=== PATIENT | male | born 1990 | race Caucasian/White ===

== ENCOUNTER 2018-08-10 23:29 | Emergency (ER) | payer SELFPAY ==
--- NOTE | 2018-08-10 23:41 | EDM.PDOC ---
ED HPI GENERAL MEDICAL PROBLEM - General Chief Complaint: General Stated Complaint: MEDICAL CLEARANCE Time Seen by Provider: 08/10/18 23:40 - History of Present Illness INITIAL COMMENTS - FREE TEXT/NARRATIVE: HISTORY AND PHYSICAL: History of present illness: Patient is a 28-year-old male who presents with concern of medical clearance patient is here with law enforcement and has no complaints Review of systems: As per history of present illness and below otherwise all systems reviewed and negative. Past medical history: As per history of present illness and as reviewed below otherwise noncontributory. Surgical history: As per history of present illness and as reviewed below otherwise noncontributory. Social history: No reported history of drug or alcohol abuse. Family history: As per history of present illness and as reviewed below otherwise noncontributory. Physical exam: HEENT: Atraumatic, normocephalic, pupils reactive, negative for conjunctival pallor or scleral icterus, mucous membranes moist, throat clear, neck supple, nontender, trachea midline. Lungs: Clear to auscultation, breath sounds equal bilaterally, chest nontender. Heart: S1S2, regular, negative for clicks, rubs, or JVD. Abdomen: Soft, nondistended, nontender. Negative for masses or hepatosplenomegaly. Negative for costovertebral tenderness. Pelvis: Stable nontender. Genitourinary: Deferred. Rectal: Deferred. Extremities: Atraumatic, negative for cords or calf pain. Neurovascular unremarkable. Neuro: Awake, alert, oriented. Cranial nerves II through XII unremarkable. Cerebellum unremarkable. Motor and sensory unremarkable throughout. Exam nonfocal. Diagnostics: None Therapeutics: None Impression: #1 medical clearance for incarceration/police hold Definitive disposition and diagnosis as appropriate pending reevaluation and review of above. - Related Data Allergies Allergy/AdvReac Type Severity Reaction Status Date / Time No Known Allergies Allergy Verified 08/10/18 23:38 Home Meds: Home Meds . [No Known Home Meds] 08/10/18 [History] ED ROS GENERAL - Review of Systems Review Of Systems: ROS reveals no pertinent complaints other than HPI. ED EXAM, GENERAL - Physical Exam Exam: See Below (See dictation) Course - Vital Signs Last Recorded V/S: Last Vital Signs Temp 36.3 C 08/10/18 23:33 Pulse 84 08/10/18 23:33 Resp 19 08/10/18 23:33 BP 124/84 08/10/18 23:33 Pulse Ox 96 08/10/18 23:33 Departure - Departure Time of Disposition: 23:41 Disposition: Home, Self-Care 01 Condition: Good Clinical Impression: Medical clearance for incarceration - Discharge Information Referrals: PCP,None [Primary Care Provider] - Additional Instructions: The following information is given to patients seen in the emergency department who are being discharged to home. This information is to outline your options for follow-up care. We provide all patients seen in our emergency department with a follow-up referral. The need for follow-up, as well as the timing and circumstances, are variable depending upon the specifics of your emergency department visit. If you don't have a primary care physician on staff, we will provide you with a referral. We always advise you to contact your personal physician following an emergency department visit to inform them of the circumstance of the visit and for follow-up with them and/or the need for any referrals to a consulting specialist. The emergency department will also refer you to a specialist when appropriate. This referral assures that you have the opportunity for followup care with a specialist. All of these measure are taken in an effort to provide you with optimal care, which includes your followup. Under all circumstances we always encourage you to contact your private physician who remains a resource for coordinating your care. When calling for followup care, please make the office aware that this follow-up is from your recent emergency room visit. If for any reason you are refused follow-up, please contact the [facility] emergency department at and asked to speak to the emergency department charge nurse. Follow up primary medical doctor as needed as discussed return as needed as discussed
== END 2018-08-10 23:58 ==
LOC: MW.ED 23:29
DX: Z02.89 Encounter for other administrative examinations (principal)
CPT/HCPCS: 82962; 99282

== ENCOUNTER 2018-12-05 07:21 | Inpatient (IN) | payer OTHER ==
--- NOTE | 2018-12-05 07:38 | EDM.PDOC ---
ED HPI GENERAL MEDICAL PROBLEM - General Chief Complaint: Skin Complaint Stated Complaint: INFECTION IN LEFT KNEE Time Seen by Provider: 12/05/18 07:33 Source of Information: Reports: Patient History Limitations: Reports: No Limitations - History of Present Illness INITIAL COMMENTS - FREE TEXT/NARRATIVE: History of present illness: []Patient has had one week of redness over his left knee that his progressing and now has swelling and redness of his leg. He's had fevers and chills. He states he did not have any trauma or an insect bite that he is aware. Patient denies any chest pain or shortness of breath. Review of systems: As per history of present illness and below otherwise all systems reviewed and negative. Past medical history: As per history of present illness and as reviewed below otherwise noncontributory. Surgical history: As per history of present illness and as reviewed below otherwise noncontributory. Social history: No reported history of drug or alcohol abuse. Family history: As per history of present illness and as reviewed below otherwise noncontributory. Physical exam: General: Well developed, well nourished in NAD HEENT: Atraumatic, normocephalic, pupils reactive, negative for conjunctival pallor or scleral icterus, mucous membranes moist, throat clear, neck supple, nontender, trachea midline. Lungs: Clear to auscultation, breath sounds equal bilaterally, chest nontender. Heart: S1S2, regular, negative for clicks, rubs, or JVD. Abdomen: NABS, Soft, nondistended, nontender. Negative for masses or hepatosplenomegaly. Negative for costovertebral tenderness. Pelvis: Stable nontender. Genitourinary: Deferred. Rectal: Deferred. Extremities: Left lower extremity is erythematous and edematous from the knee down. He is able to flex and extend his knee spontaneously, negative for cords or calf pain. Neurovascular unremarkable. Neuro: Awake, alert, oriented. Cranial nerves II through XII unremarkable. Cerebellum unremarkable. Motor and sensory unremarkable throughout. Exam nonfocal. Skin:warm and dry Diagnostics: X-ray left knee, Doppler ultrasound left leg, CBC, blood cultures, chemistry, lactate, sedimentation rate, CRP Therapeutics: IV ceftriaxone ED Course: Stable and with Dr. Shin accepts patient for admission Impression: Cellulitis left lower extremity Prescriptions: none Plan: Admit for IV antibiotics Definitive disposition and diagnosis as appropriate pending reevaluation and review of above. Left Knee Pain Score (Numeric/FACES): 8 - Related Data Allergies Allergy/AdvReac Type Severity Reaction Status Date / Time No Known Allergies Allergy Verified 12/05/18 07:34 Home Meds: Home Meds . [No Known Home Meds] 08/10/18 [History] Past Medical History - Past Health History Medical/Surgical History: Denies Medical/Surgical History Social & Family History - Family History Family Medical History: Noncontributory - Caffeine Use Caffeine Use: Reports: Coffee, Energy Drinks, Soda ED ROS GENERAL - Review of Systems Review Of Systems: See Below ED EXAM, SKIN/RASH Exam: See Below Course - Vital Signs Last Recorded V/S: Last Vital Signs Temp 98.2 F 12/05/18 07:41 Pulse 93 12/05/18 07:41 Resp 16 12/05/18 07:41 BP 129/83 12/05/18 07:41 Pulse Ox 98 12/05/18 07:41 - Orders/Labs/Meds Orders: Active Orders 24 hr Category Date Time Status Patient Status [ADT] Stat ADT 12/05/18 10:27 Ordered CULTURE BLOOD [BC] Stat Lab 12/05/18 08:03 Received CULTURE BLOOD [BC] Stat Lab 12/05/18 08:10 Received Sodium Chloride 0.9% [Saline Flush] Med 12/05/18 07:41 Active 10 ml FLUSH ASDIRECTED PRN Sodium Chloride 0.9% [Saline Flush] Med 12/05/18 07:41 Active 2.5 ml FLUSH ASDIRECTED PRN Blood Culture x2 Reflex Set [OM.PC] Stat Oth 12/05/18 07:41 Ordered Saline Lock Insert [OM.PC] Stat Oth 12/05/18 07:41 Ordered Medication Orders Sodium Chloride (Saline Flush) 10 ml FLUSH ASDIRECTED PRN PRN Reason: Keep Vein Open Last Admin: 12/05/18 09:08 Dose: 10 ml Sodium Chloride (Saline Flush) 2.5 ml FLUSH ASDIRECTED PRN PRN Reason: Keep Vein Open Last Admin: 12/05/18 09:08 Dose: 2.5 ml Labs: Laboratory Tests 12/05/18 12/05/18 12/05/18 Range/Units 08:03 08:03 08:03 WBC 7.64 (4.0-11.0) K/uL RBC 4.19 L (4.50-5.90) M/uL Hgb 11.8 L (13.0-17.0) g/dL Hct 35.2 L (38.0-50.0) % MCV 84.0 (80.0-98.0) fL MCH 28.2 (27.0-32.0) pg MCHC 33.5 (31.0-37.0) g/dL RDW Std Deviation 41.3 (28.0-62.0) fl RDW Coeff of Amelie 14 (11.0-15.0) % Plt Count 267 (150-400) K/uL MPV 10.20 (7.40-12.00) fL Neut % (Auto) 70.6 (48.0-80.0) % Lymph % (Auto) 20.8 (16.0-40.0) % [place] % (Auto) 7.1 (0.0-15.0) % Eos % (Auto) 1.2 (0.0-7.0) % Baso % (Auto) 0.3 (0.0-1.5) % Neut # (Auto) 5.4 (1.4-5.7) K/uL Lymph # (Auto) 1.6 (0.6-2.4) K/uL [place] # (Auto) 0.5 (0.0-0.8) K/uL Eos # (Auto) 0.1 (0.0-0.7) K/uL Baso # (Auto) 0.0 (0.0-0.1) K/uL Nucleated RBC % 0.0 /100WBC Nucleated RBCs # 0 K/uL ESR (0-14) mm/hr Lactate 0.7 (0.20-2.00) mmol/L Sodium 141 (136-148) mmol/L Potassium 3.3 L (3.5-5.1) mmol/L Chloride 102 (98-107) mmol/L Carbon Dioxide 28.2 (21.0-32.0) mmol/L BUN 9 (7.0-18.0) mg/dL Creatinine 0.9 (0.8-1.3) mg/dL Est Cr Clr Drug Dosing 120.02 mL/min Estimated GFR (MDRD) > 60.0 ml/min Glucose 96 (74-106) mg/dL Calcium 8.9 (8.5-10.1) mg/dL Total Bilirubin 0.3 (0.2-1.0) mg/dL AST 14 L (15-37) IU/L ALT 21 (14-63) IU/L Alkaline Phosphatase 74 (46-116) U/L C-Reactive Protein (0.00-0.90) mg/dL Total Protein 6.7 (6.4-8.2) g/dL Albumin 2.8 L (3.4-5.0) g/dL Globulin 3.9 (2.6-4.0) g/dL Albumin/Globulin Ratio 0.7 L (0.9-1.6) 12/05/18 12/05/18 Range/Units 08:03 08:03 WBC (4.0-11.0) K/uL RBC (4.50-5.90) M/uL Hgb (13.0-17.0) g/dL Hct (38.0-50.0) % MCV (80.0-98.0) fL MCH (27.0-32.0) pg MCHC (31.0-37.0) g/dL RDW Std Deviation (28.0-62.0) fl RDW Coeff of Amelie (11.0-15.0) % Plt Count (150-400) K/uL MPV (7.40-12.00) fL Neut % (Auto) (48.0-80.0) % Lymph % (Auto) (16.0-40.0) % [place] % (Auto) (0.0-15.0) % Eos % (Auto) (0.0-7.0) % Baso % (Auto) (0.0-1.5) % Neut # (Auto) (1.4-5.7) K/uL Lymph # (Auto) (0.6-2.4) K/uL [place] # (Auto) (0.0-0.8) K/uL Eos # (Auto) (0.0-0.7) K/uL Baso # (Auto) (0.0-0.1) K/uL Nucleated RBC % /100WBC Nucleated RBCs # K/uL ESR 39 H (0-14) mm/hr Lactate (0.20-2.00) mmol/L Sodium (136-148) mmol/L Potassium (3.5-5.1) mmol/L Chloride (98-107) mmol/L Carbon Dioxide (21.0-32.0) mmol/L BUN (7.0-18.0) mg/dL Creatinine (0.8-1.3) mg/dL Est Cr Clr Drug Dosing mL/min Estimated GFR (MDRD) ml/min Glucose (74-106) mg/dL Calcium (8.5-10.1) mg/dL Total Bilirubin (0.2-1.0) mg/dL AST (15-37) IU/L ALT (14-63) IU/L Alkaline Phosphatase (46-116) U/L C-Reactive Protein 21.30 H (0.00-0.90) mg/dL Total Protein (6.4-8.2) g/dL Albumin (3.4-5.0) g/dL Globulin (2.6-4.0) g/dL Albumin/Globulin Ratio (0.9-1.6) Meds: Medications Generic Name Dose Route Start Last Admin Trade Name Freq PRN Reason Stop Dose Admin Sodium Chloride 10 ml 12/05/18 07:41 12/05/18 09:08 Saline Flush FLUSH 10 ml ASDIRECTED PRN Administration Keep Vein Open Sodium Chloride 2.5 ml 12/05/18 07:41 12/05/18 09:08 Saline Flush FLUSH 2.5 ml ASDIRECTED PRN Administration Keep Vein Open Discontinued Medications Generic Name Dose Route Start Last Admin Trade Name Freq PRN Reason Stop Dose Admin Ceftriaxone Sodium/Dextrose 1 50 mls @ 100 mls/hr 12/05/18 08:30 12/05/18 09: 07 gm/ Premix IV 12/05/18 08:59 100 mls/hr ONETIME ONE Administration Departure - Departure Time of Disposition: 10:30 Disposition: Refer to Observation Condition: Good Clinical Impression: Left leg cellulitis - Discharge Information *PRESCRIPTION DRUG MONITORING PROGRAM REVIEWED*: No *COPY OF PRESCRIPTION DRUG MONITORING REPORT IN PATIENT MJ: No Referrals: PCP,None [Primary Care Provider] - Forms: ED Department Discharge - My Orders Last 24 Hours: My Active Orders 12/05/18 07:41 Sodium Chloride 0.9% [Saline Flush] 10 ml FLUSH ASDIRECTED PRN Sodium Chloride 0.9% [Saline Flush] 2.5 ml FLUSH ASDIRECTED PRN Blood Culture x2 Reflex Set [OM.PC] Stat Saline Lock Insert [OM.PC] Stat 12/05/18 08:03 CULTURE BLOOD [BC] Stat 12/05/18 08:10 CULTURE BLOOD [BC] Stat 12/05/18 10:27 Patient Status [ADT] Stat - Assessment/Plan Last 24 Hours: My Active Orders 12/05/18 07:41 Sodium Chloride 0.9% [Saline Flush] 10 ml FLUSH ASDIRECTED PRN Sodium Chloride 0.9% [Saline Flush] 2.5 ml FLUSH ASDIRECTED PRN Blood Culture x2 Reflex Set [OM.PC] Stat Saline Lock Insert [OM.PC] Stat 12/05/18 08:03 CULTURE BLOOD [BC] Stat 12/05/18 08:10 CULTURE BLOOD [BC] Stat 12/05/18 10:27 Patient Status [ADT] Stat
[2018-12-05] MEDS ORDERED: Sodium Chloride 0.9% 2.5 ML Syringe FLUSH PRN (07:41)
[2018-12-05] MEDS ORDERED: Sodium Chloride 0.9% 10 ML Syringe FLUSH PRN (07:41)
[2018-12-05] MEDS ORDERED: cefTRIAXone 1 GM in Premix Bag 1 BAG IV ONE (08:30)
[2018-12-05 08:38] LABS: BLOOD UREA NITROGEN,BUN 9 mg/dL (7.0-18.0); CARBON DIOXIDE,CO2 28.2 mmol/L (21.0-32.0); CHLORIDE,CL 102 mmol/L (98-107); GLUCOSE RANDOM 96 mg/dL (74-106); POTASSIUM,K 3.3 mmol/L (3.5-5.1); SODIUM,NA 141 mmol/L (136-148)
--- NOTE | 2018-12-05 09:05 | US ---
HISTORY: Left leg pain and redness. TECHNIQUE: Deep venous system of left lower extremity was examined using grayscale, color and Doppler techniques. Compression was assessed where able to be assessed. COMPARISON: No prior. FINDINGS: The left common femoral, femoral, popliteal and posterior tibial veins are patent without thrombus. There are areas of soft tissue swelling along with soft tissue edema involving the left leg. No well-defined collection. IMPRESSION: 1. Areas of soft tissue edema and swelling. 2. No well-defined collection. 3. No DVT within the left lower extremity. Dictated by Jaun Rooney MD @ 12/05/2018 9:04:06 AM Dictated by: Jaun Rooney MD @ 12/05/2018 09:04:09 (Electronically Signed)
--- NOTE | 2018-12-05 09:16 | CR ---
HISTORY: Left knee pain, infection. TECHNIQUE: Three views of the left knee. COMPARISON: Ultrasound 12/05/2018. FINDINGS: There is soft tissue swelling about the knee. There is no soft tissue gas. No acute fracture. No bony destructive change. No joint space narrowing. No definite suprapatellar joint effusion. IMPRESSION: 1. Soft tissue swelling. 2. No bony destructive change, soft tissue gas or definite suprapatellar joint effusion. Dictated by Jaun Rooney MD @ 12/05/2018 9:15:43 AM Dictated by: Jaun Rooney MD @ 12/05/2018 09:15:48 (Electronically Signed)
[2018-12-05] MEDS ORDERED: Acetaminophen 325 MG Tab PO PRN (10:49)
[2018-12-05] MEDS ORDERED: Temazepam 15 MG Cap PO PRN (10:50)
[2018-12-05] MEDS ORDERED: Ondansetron 4 MG Tab.DIS PO PRN (10:50)
--- NOTE | 2018-12-05 10:57 | PCM.HP.2 ---
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 Patient also endorses some mild fever and chills for which he used [id number] ibuprofen 200 mg x 4 every 4 hours; last dose was last night; states he stopped taking ibuprofen because of his stomach pain and discomfort. Patient also endorses a history of MRSA after a dog bite from 5 years ago. Patient denies any other significant medical history,, daily medications, or significant hospitalizations. Left Knee Pain Score (Numeric/FACES): 8 - Related Data Allergies/Adverse Reactions: Allergies Allergy/AdvReac Type Severity Reaction Status Date / Time No Known Allergies Allergy Verified 12/05/18 07:34 Home Medications: Home Meds . [No Known Home Meds] 08/10/18 [History] Past Medical History - Past Health History Medical/Surgical History: Denies Medical/Surgical History HEENT History: Reports: None Cardiovascular History: Reports: None Respiratory History: Reports: None Gastrointestinal History: Reports: None Genitourinary History: Reports: None Musculoskeletal History: Reports: None Neurological History: Reports: None Psychiatric History: Reports: None Endocrine/Metabolic History: Reports: None Hematologic History: Reports: None Immunologic History: Reports: None Oncologic (Cancer) History: Reports: None Dermatologic History: Reports: None - Infectious Disease History Infectious Disease History: Reports: Other (See Below) Other Infectious Disease History: Unknown if he has had chickenpox. - Past Surgical History Head Surgeries/Procedures: Reports: None Male Surgical History: Reports: None Social & Family History - Family History Family Medical History: Noncontributory - Tobacco Use Second Hand Smoke Exposure: No - Caffeine Use Caffeine Use: Reports: Coffee, Energy Drinks, Soda - Recreational Drug Use Recreational Drug Use: No H&P Review of Systems - Review of Systems: Review Of Systems: See Below General: Reports: Fever, Chills. Denies: Fatigue HEENT: Reports: No Symptoms Pulmonary: Reports: No Symptoms Cardiovascular: Reports: No Symptoms Gastrointestinal: Reports: Other (mild discomfort). Denies: Black Stool, Bloody Stool, Constipation, Diarrhea Genitourinary: Reports: No Symptoms Musculoskeletal: Reports: Other (left knee pain ) Skin: Reports: Erythema Exam - Exam Exam: See Below - Vital Signs Vital Signs: Last Vital Signs Temp 98.2 F 12/05/18 07:41 Pulse 93 12/05/18 07:41 Resp 16 12/05/18 07:41 BP 129/83 12/05/18 07:41 Pulse Ox 98 12/05/18 07:41 Weight: 77.111 kg - Exam General: Alert, Oriented HEENT: EOMI, Hearing Intact, Mucosa Moist & E. Lopez Neck: Trachea Midline Lungs: Clear to Auscultation, Normal Respiratory Effort Cardiovascular: Regular Rate, Regular Rhythm GI/Abdominal Exam: Soft, Non-Tender Back Exam: Normal Inspection, Full Range of Motion Skin: Other (left knee: erythema, increased warmth starting at distal portion of left upper leg extending doen to left ankle predominantly at the anterior aspect; left knee itself swollen, tender, increased warmth, 1.5 cm circualr pustular open wound , 1.5 cm deep; tender, FROM of knee ; no popliteal swelling . ) Neuro Extensive - Mental Status: Alert, Oriented x3 Neuro Extensive - Motor, Sensory, Reflexes: CN II-XII Intact Psychiatric: Alert, Normal Affect, Normal Mood - Patient Data Lab Results Last 24 hrs: Laboratory Results - last 24 hr 12/05/18 12/05/18 12/05/18 Range/Units 08:03 08:03 08:03 WBC 7.64 (4.0-11.0) K/uL RBC 4.19 L (4.50-5.90) M/uL Hgb 11.8 L (13.0-17.0) g/dL Hct 35.2 L (38.0-50.0) % MCV 84.0 (80.0-98.0) fL MCH 28.2 (27.0-32.0) pg MCHC 33.5 (31.0-37.0) g/dL RDW Std Deviation 41.3 (28.0-62.0) fl RDW Coeff of Amelie 14 (11.0-15.0) % Plt Count 267 (150-400) K/uL MPV 10.20 (7.40-12.00) fL Neut % (Auto) 70.6 (48.0-80.0) % Lymph % (Auto) 20.8 (16.0-40.0) % Fountain % (Auto) 7.1 (0.0-15.0) % Eos % (Auto) 1.2 (0.0-7.0) % Baso % (Auto) 0.3 (0.0-1.5) % Neut # (Auto) 5.4 (1.4-5.7) K/uL Lymph # (Auto) 1.6 (0.6-2.4) K/uL Fountain # (Auto) 0.5 (0.0-0.8) K/uL Eos # (Auto) 0.1 (0.0-0.7) K/uL Baso # (Auto) 0.0 (0.0-0.1) K/uL Nucleated RBC % 0.0 /100WBC Nucleated RBCs # 0 K/uL ESR (0-14) mm/hr Lactate 0.7 (0.20-2.00) mmol/L Sodium 141 (136-148) mmol/L Potassium 3.3 L (3.5-5.1) mmol/L Chloride 102 (98-107) mmol/L Carbon Dioxide 28.2 (21.0-32.0) mmol/L BUN 9 (7.0-18.0) mg/dL Creatinine 0.9 (0.8-1.3) mg/dL Est Cr Clr Drug Dosing 120.02 mL/min Estimated GFR (MDRD) > 60.0 ml/min Glucose 96 (74-106) mg/dL Calcium 8.9 (8.5-10.1) mg/dL Total Bilirubin 0.3 (0.2-1.0) mg/dL AST 14 L (15-37) IU/L ALT 21 (14-63) IU/L Alkaline Phosphatase 74 (46-116) U/L C-Reactive Protein (0.00-0.90) mg/dL Total Protein 6.7 (6.4-8.2) g/dL Albumin 2.8 L (3.4-5.0) g/dL Globulin 3.9 (2.6-4.0) g/dL Albumin/Globulin Ratio 0.7 L (0.9-1.6) 12/05/18 12/05/18 Range/Units 08:03 08:03 WBC (4.0-11.0) K/uL RBC (4.50-5.90) M/uL Hgb (13.0-17.0) g/dL Hct (38.0-50.0) % MCV (80.0-98.0) fL MCH (27.0-32.0) pg MCHC (31.0-37.0) g/dL RDW Std Deviation (28.0-62.0) fl RDW Coeff of Amelie (11.0-15.0) % Plt Count (150-400) K/uL MPV (7.40-12.00) fL Neut % (Auto) (48.0-80.0) % Lymph % (Auto) (16.0-40.0) % Fountain % (Auto) (0.0-15.0) % Eos % (Auto) (0.0-7.0) % Baso % (Auto) (0.0-1.5) % Neut # (Auto) (1.4-5.7) K/uL Lymph # (Auto) (0.6-2.4) K/uL Fountain # (Auto) (0.0-0.8) K/uL Eos # (Auto) (0.0-0.7) K/uL Baso # (Auto) (0.0-0.1) K/uL Nucleated RBC % /100WBC Nucleated RBCs # K/uL ESR 39 H (0-14) mm/hr Lactate (0.20-2.00) mmol/L Sodium (136-148) mmol/L Potassium (3.5-5.1) mmol/L Chloride (98-107) mmol/L Carbon Dioxide (21.0-32.0) mmol/L BUN (7.0-18.0) mg/dL Creatinine (0.8-1.3) mg/dL Est Cr Clr Drug Dosing mL/min Estimated GFR (MDRD) ml/min Glucose (74-106) mg/dL Calcium (8.5-10.1) mg/dL Total Bilirubin (0.2-1.0) mg/dL AST (15-37) IU/L ALT (14-63) IU/L Alkaline Phosphatase (46-116) U/L C-Reactive Protein 21.30 H (0.00-0.90) mg/dL Total Protein (6.4-8.2) g/dL Albumin (3.4-5.0) g/dL Globulin (2.6-4.0) g/dL Albumin/Globulin Ratio (0.9-1.6) Result Diagrams: 12/05/18 08:03 12/05/18 08:03 Problem List Initiated/Reviewed/Updated: Yes Orders Last 24hrs: Active Orders 24 hr Category Date Time Status Patient Status [ADT] Stat ADT 12/05/18 10:27 Active Activity as Tolerated [RC] .Routine Care 12/05/18 10:47 Active Intake and Output [RC] ASDIRECTED Care 12/05/18 10:47 Active Vital Signs [RC] PER UNIT ROUTINE Care 12/05/18 10:46 Active Regular Diet [DIET] Diet 12/05/18 Lunch Active Knee w wo Cont Lt [MR] Stat Exams 12/05/18 10:40 Ordered CHLAMYDIA AND GONORRHEA BY TMA Routine Lab 12/05/18 10:48 Ordered CULTURE BLOOD [BC] Stat Lab 12/05/18 08:03 Received CULTURE BLOOD [BC] Stat Lab 12/05/18 08:10 Received Acetaminophen [Tylenol] Med 12/05/18 10:49 Active 650 mg PO Q6H PRN Clindamycin Phosphate [Cleocin] 300 mg Med 12/05/18 10:45 Active Sodium Chloride 0.9% [Normal Saline] 50 ml IV Q8H Ondansetron [Zofran ODT] Med 12/05/18 10:50 Active 4 mg PO Q6H PRN Pharmacy to Dose - Vancomycin Med 12/05/18 10:45 Ordered 1 dose .XX ASDIRECTED Sodium Chloride 0.9% [Saline Flush] Med 12/05/18 07:41 Active 10 ml FLUSH ASDIRECTED PRN Sodium Chloride 0.9% [Saline Flush] Med 12/05/18 07:41 Active 2.5 ml FLUSH ASDIRECTED PRN Temazepam [Restoril] Med 12/05/18 10:50 Active 15 mg PO BEDTIME PRN Blood Culture x2 Reflex Set [OM.PC] Stat Oth 12/05/18 07:41 Ordered Saline Lock Insert [OM.PC] Stat Oth 12/05/18 07:41 Ordered Code Status [Resuscitation Status] Stat Resus Stat 12/05/18 10:46 Ordered Medication Orders Acetaminophen (Tylenol) 650 mg PO Q6H PRN PRN Reason: Fever Clindamycin Phosphate 300 mg/ (Sodium Chloride) 52 mls @ 100 mls/hr IV Q8H SHANNAN Ondansetron HCl (Zofran Odt) 4 mg PO Q6H PRN PRN Reason: Nausea/Vomiting Sodium Chloride (Saline Flush) 10 ml FLUSH ASDIRECTED PRN PRN Reason: Keep Vein Open Last Admin: 12/05/18 09:08 Dose: 10 ml Sodium Chloride (Saline Flush) 2.5 ml FLUSH ASDIRECTED PRN PRN Reason: Keep Vein Open Last Admin: 12/05/18 09:08 Dose: 2.5 ml Temazepam (Restoril) 15 mg PO BEDTIME PRN PRN Reason: Insomnia Vancomycin HCl (Pharmacy To Dose - Vancomycin) 1 dose .XX ASDIRECTED [facility] Assessment/Plan Comment:: assessment: Admit patient to observation. Full code. Diet: regular. Intake outtake per routine. Vitals per routine. Activity: up ad mark. 1. Left knee cellulitis with concerns of septic arthritis w/ History of MRSA 2. hypokalemia 3. Normocytic anemia Plan: 1. Initiate vancomycin and clindamycin: 300 mg 3 times a day 7 days. Wound culture ordered prior to initiation of antibiotics. Concerns for bursitis: MRI with and without contrast of the left knee ordered. 2. gonorrhea/chlamydia urine: ordered for concerns of septic arthritis. 3. Tylenol 600 every 6 hours when necessary fever or pain. We'll consider Toradol if pain is not controlled. 4. Hypokalemia: continue to monitor. 4. Normocytic anemia:continue to monitor <Eliecer Antonio - Last Filed: 12/05/18 11:43> H&P History of Present Illness - General Admit Problem/Dx: Admission Diagnosis/Problem Admission Diagnosis/Problem Cellulitis I have seen and examined the patient independently of medical concierge, Dr. Vijay MD. I have reviewed and agree with the plan of care as outlined for this patient by him. I have discussed the case with him. Please see orders. Exam - Vital Signs Vital Signs: Last Vital Signs Temp 36.8 C 12/05/18 11:11 Pulse 91 12/05/18 11:11 Resp 16 12/05/18 11:11 BP 131/73 12/05/18 11:11 Pulse Ox 97 12/05/18 11:11 - Patient Data Lab Results Last 24 hrs: Laboratory Results - last 24 hr 12/05/18 12/05/18 12/05/18 Range/Units 08:03 08:03 08:03 WBC 7.64 (4.0-11.0) K/uL RBC 4.19 L (4.50-5.90) M/uL Hgb 11.8 L (13.0-17.0) g/dL Hct 35.2 L (38.0-50.0) % MCV 84.0 (80.0-98.0) fL MCH 28.2 (27.0-32.0) pg MCHC 33.5 (31.0-37.0) g/dL RDW Std Deviation 41.3 (28.0-62.0) fl RDW Coeff of Amelie 14 (11.0-15.0) % Plt Count 267 (150-400) K/uL MPV 10.20 (7.40-12.00) fL Neut % (Auto) 70.6 (48.0-80.0) % Lymph % (Auto) 20.8 (16.0-40.0) % Fountain % (Auto) 7.1 (0.0-15.0) % Eos % (Auto) 1.2 (0.0-7.0) % Baso % (Auto) 0.3 (0.0-1.5) % Neut # (Auto) 5.4 (1.4-5.7) K/uL Lymph # (Auto) 1.6 (0.6-2.4) K/uL Fountain # (Auto) 0.5 (0.0-0.8) K/uL Eos # (Auto) 0.1 (0.0-0.7) K/uL Baso # (Auto) 0.0 (0.0-0.1) K/uL Nucleated RBC % 0.0 /100WBC Nucleated RBCs # 0 K/uL ESR (0-14) mm/hr Lactate 0.7 (0.20-2.00) mmol/L Sodium 141 (136-148) mmol/L Potassium 3.3 L (3.5-5.1) mmol/L Chloride 102 (98-107) mmol/L Carbon Dioxide 28.2 (21.0-32.0) mmol/L BUN 9 (7.0-18.0) mg/dL Creatinine 0.9 (0.8-1.3) mg/dL Est Cr Clr Drug Dosing 120.02 mL/min Estimated GFR (MDRD) > 60.0 ml/min Glucose 96 (74-106) mg/dL Calcium 8.9 (8.5-10.1) mg/dL Total Bilirubin 0.3 (0.2-1.0) mg/dL AST 14 L (15-37) IU/L ALT 21 (14-63) IU/L Alkaline Phosphatase 74 (46-116) U/L C-Reactive Protein (0.00-0.90) mg/dL Total Protein 6.7 (6.4-8.2) g/dL Albumin 2.8 L (3.4-5.0) g/dL Globulin 3.9 (2.6-4.0) g/dL Albumin/Globulin Ratio 0.7 L (0.9-1.6) 12/05/18 12/05/18 Range/Units 08:03 08:03 WBC (4.0-11.0) K/uL RBC (4.50-5.90) M/uL Hgb (13.0-17.0) g/dL Hct (38.0-50.0) % MCV (80.0-98.0) fL MCH (27.0-32.0) pg MCHC (31.0-37.0) g/dL RDW Std Deviation (28.0-62.0) fl RDW Coeff of Amelie (11.0-15.0) % Plt Count (150-400) K/uL MPV (7.40-12.00) fL Neut % (Auto) (48.0-80.0) % Lymph % (Auto) (16.0-40.0) % Fountain % (Auto) (0.0-15.0) % Eos % (Auto) (0.0-7.0) % Baso % (Auto) (0.0-1.5) % Neut # (Auto) (1.4-5.7) K/uL Lymph # (Auto) (0.6-2.4) K/uL Fountain # (Auto) (0.0-0.8) K/uL Eos # (Auto) (0.0-0.7) K/uL Baso # (Auto) (0.0-0.1) K/uL Nucleated RBC % /100WBC Nucleated RBCs # K/uL ESR 39 H (0-14) mm/hr Lactate (0.20-2.00) mmol/L Sodium (136-148) mmol/L Potassium (3.5-5.1) mmol/L Chloride (98-107) mmol/L Carbon Dioxide (21.0-32.0) mmol/L BUN (7.0-18.0) mg/dL Creatinine (0.8-1.3) mg/dL Est Cr Clr Drug Dosing mL/min Estimated GFR (MDRD) ml/min Glucose (74-106) mg/dL Calcium (8.5-10.1) mg/dL Total Bilirubin (0.2-1.0) mg/dL AST (15-37) IU/L ALT (14-63) IU/L Alkaline Phosphatase (46-116) U/L C-Reactive Protein 21.30 H (0.00-0.90) mg/dL Total Protein (6.4-8.2) g/dL Albumin (3.4-5.0) g/dL Globulin (2.6-4.0) g/dL Albumin/Globulin Ratio (0.9-1.6) Result Diagrams: 12/05/18 08:03 12/05/18 08:03 Orders Last 24hrs: Active Orders 24 hr Category Date Time Status Patient Status [ADT] Stat ADT 12/05/18 10:27 Active Activity as Tolerated [RC] .Routine Care 12/05/18 10:47 Active Intake and Output [RC] ASDIRECTED Care 12/05/18 10:47 Active Vital Signs [RC] PER UNIT ROUTINE Care 12/05/18 10:46 Active Regular Diet [DIET] Diet 12/05/18 Lunch Active Knee w wo Cont Lt [MR] Stat Exams 12/05/18 10:40 Ordered CHLAMYDIA AND GONORRHEA BY TMA Routine Lab 12/05/18 10:48 Ordered CULTURE BLOOD [BC] Stat Lab 12/05/18 08:03 Received CULTURE BLOOD [BC] Stat Lab 12/05/18 08:10 Received Acetaminophen [Tylenol] Med 12/05/18 10:49 Active 650 mg PO Q6H PRN Clindamycin Phosphate in D5W [Cleocin in D5W] 300 mg Med 12/05/18 18:45 Active Premix Bag 1 bag IV Q8H Ondansetron [Zofran ODT] Med 12/05/18 10:50 Active 4 mg PO Q6H PRN Pantoprazole [ProTONIX] Med 12/05/18 11:15 Active 40 mg PO DAILY Sodium Chloride 0.9% [Saline Flush] Med 12/05/18 07:41 Active 10 ml FLUSH ASDIRECTED PRN Sodium Chloride 0.9% [Saline Flush] Med 12/05/18 07:41 Active 2.5 ml FLUSH ASDIRECTED PRN Temazepam [Restoril] Med 12/05/18 10:50 Active 15 mg PO BEDTIME PRN Vancomycin 1.25 gm Med 12/05/18 11:00 Active Sodium Chloride 0.9% [Normal Saline (AdvBag)] 250 ml IV Q8H Blood Culture x2 Reflex Set [OM.PC] Stat Oth 12/05/18 07:41 Ordered Saline Lock Insert [OM.PC] Stat Oth 12/05/18 07:41 Ordered Code Status [Resuscitation Status] Stat Resus Stat 12/05/18 10:46 Ordered Medication Orders Acetaminophen (Tylenol) 650 mg PO Q6H PRN PRN Reason: Fever Vancomycin HCl 1.25 gm/ Sodium (Chloride) 250 mls @ 250 mls/hr IV Q8H SHANNAN Clindamycin Phosphate 300 mg/ (Premix) 50 mls @ 100 mls/hr IV Q8H SHANNAN Ondansetron HCl (Zofran Odt) 4 mg PO Q6H PRN PRN Reason: Nausea/Vomiting Pantoprazole Sodium (Protonix) 40 mg PO DAILY SHANNAN Sodium Chloride (Saline Flush) 10 ml FLUSH ASDIRECTED PRN PRN Reason: Keep Vein Open Last Admin: 12/05/18 09:08 Dose: 10 ml Sodium Chloride (Saline Flush) 2.5 ml FLUSH ASDIRECTED PRN PRN Reason: Keep Vein Open Last Admin: 12/05/18 09:08 Dose: 2.5 ml Temazepam (Restoril) 15 mg PO BEDTIME PRN PRN Reason: Insomnia
[2018-12-05] MEDS: Pantoprazole 40 MG Tab.CR PO SCH (11:42)
[2018-12-05] MEDS ORDERED: diphenhydrAMINE 50 MG/ML SDV IVPUSH ONE (12:40)
[2018-12-05] MEDS: Clindamycin Phosphate in D5W 300 MG in Premix Bag 1 BAG IV SCH ×2 (17:51)
[2018-12-05] MEDS ORDERED: Docusate Sodium 100 MG Cap PO PRN (18:27)
[2018-12-05] MEDS ORDERED: Gadobenate Dimeglumine 529 MG/ML 20 ML SDV IVPUSH STA (19:42)
--- NOTE | 2018-12-05 21:13 | MR ---
INDICATION: Left knee infection. TECHNIQUE: Axial PD FS, sagittal T1, PD, and PD FS, and coronal PD and PD FS. Post-contrast (15 mL MultiHance IV) axial and sagittal T1 FS. COMPARISON: Radiographs from 12/05/2018. FINDINGS: Bones: No fracture, bone contusion, or evidence of a marrow replacement process. No abnormal marrow enhancement. Incidental benign cortical lesion (cortical desmoid) is seen involving the distal femur at the origin of the medial head of the gastrocnemius. Joint fluid and capsule: There is a physiologic amount of fluid in the joint. No abnormal synovial proliferation or enhancement. No loose body. No capsular injury. Cruciate ligaments: Intact. Extensor mechanism: The distal quadriceps tendon, patellar tendon, and medial and lateral retinacula are intact. Normal patellar position and patellofemoral alignment. Medial collateral ligament complex: Intact. Lateral collateral ligament complex: Intact. Medial tibiofemoral compartment: No meniscal tear. Normal articular cartilage. Lateral tibiofemoral compartment: No meniscal tear. Normal articular cartilage. Patellofemoral compartment: Normal articular cartilage. Periarticular soft tissues: There is soft tissue swelling about the knee. There is a small skin defect seen anterior to the patella on axial image 31, measuring approximately 6 x 6 mm. This communicates with an irregular rim enhancing fluid collection within the subcutaneous tissues which measures approximately 3.8 x 0.5 x 3.3 cm. There are intense surrounding inflammatory changes. Given the relatively "disorganized" appearance of the fluid collection, this is likely related to a developing abscess/phlegmon within the subcutaneous tissues, although this could also represent infectious prepatellar bursitis. No muscular edema, atrophy, or abnormal muscular enhancement. IMPRESSION: 1. Prepatellar skin defect/ulceration, with a developing abscess in the subcutaneous tissues versus infectious bursitis. 2. No evidence of an intra-articular infection/septic joint. 3. Incidental findings as noted. Dictated by Clarence Styles MD @ Dec 06 2018 8:11AM Signed by Dr. Clarence Styles @ Dec 06 2018 8:29AM
[2018-12-05] MEDS ORDERED: diphenhydrAMINE 50 MG Cap PO PRN (23:25)
[2018-12-06] MEDS: Clindamycin Phosphate in D5W 300 MG in Premix Bag 1 BAG IV SCH ×6 (02:43→18:10)
[2018-12-06 06:51] LABS: BLOOD UREA NITROGEN,BUN 7 mg/dL (7.0-18.0); CARBON DIOXIDE,CO2 26.4 mmol/L (21.0-32.0); CHLORIDE,CL 105 mmol/L (98-107); GLUCOSE RANDOM 101 mg/dL (74-106); POTASSIUM,K 3.7 mmol/L (3.5-5.1); SODIUM,NA 142 mmol/L (136-148)
[2018-12-06] MEDS: Pantoprazole 40 MG Tab.CR PO SCH (08:32)
--- NOTE | 2018-12-06 09:58 | PCM.PN ---
<Gayatri Linares - Last Filed: 12/06/18 09:59> - General Info Date of Service: 12/06/18 Subjective Update: patient seen at bedside. Endorsing no new complaints. States he thinks the left knee is better; otherwise has no other issues at this time. Denies any fevers, chills, body aches, redness migrating beyond lines of demarcation. - Patient Data Vitals - Most Recent: Last Vital Signs Temp 98.1 F 12/06/18 07:43 Pulse 79 12/06/18 07:43 Resp 16 12/06/18 07:43 BP 108/72 12/06/18 07:43 Pulse Ox 98 12/06/18 07:43 Weight - Most Recent: 76.374 kg I&O - Last 24 Hours: Intake & Output 12/05/18 12/06/18 12/06/18 22:59 06:59 14:59 Intake Total 830 740 120 Balance 830 740 120 Lab Results Last 24 Hours: Laboratory Results - last 24 hr 12/06/18 12/06/18 Range/Units 05:43 05:43 WBC 5.65 (4.0-11.0) K/uL RBC 4.13 L (4.50-5.90) M/uL Hgb 11.5 L (13.0-17.0) g/dL Hct 34.7 L (38.0-50.0) % MCV 84.0 (80.0-98.0) fL MCH 27.8 (27.0-32.0) pg MCHC 33.1 (31.0-37.0) g/dL RDW Std Deviation 41.1 (28.0-62.0) fl RDW Coeff of Amelie 14 (11.0-15.0) % Plt Count 291 (150-400) K/uL MPV 9.90 (7.40-12.00) fL Neut % (Auto) 59.6 (48.0-80.0) % Lymph % (Auto) 27.4 (16.0-40.0) % [place] % (Auto) 8.5 (0.0-15.0) % Eos % (Auto) 4.1 (0.0-7.0) % Baso % (Auto) 0.4 (0.0-1.5) % Neut # (Auto) 3.4 (1.4-5.7) K/uL Lymph # (Auto) 1.6 (0.6-2.4) K/uL [place] # (Auto) 0.5 (0.0-0.8) K/uL Eos # (Auto) 0.2 (0.0-0.7) K/uL Baso # (Auto) 0.0 (0.0-0.1) K/uL Nucleated RBC % 0.0 /100WBC Nucleated RBCs # 0 K/uL Sodium 142 (136-148) mmol/L Potassium 3.7 (3.5-5.1) mmol/L Chloride 105 (98-107) mmol/L Carbon Dioxide 26.4 (21.0-32.0) mmol/L BUN 7 (7.0-18.0) mg/dL Creatinine 0.8 (0.8-1.3) mg/dL Est Cr Clr Drug Dosing 135.02 mL/min Estimated GFR (MDRD) > 60.0 ml/min Glucose 101 (74-106) mg/dL Calcium 8.8 (8.5-10.1) mg/dL Total Bilirubin 0.3 (0.2-1.0) mg/dL AST 9 L (15-37) IU/L ALT 18 (14-63) IU/L Alkaline Phosphatase 62 (46-116) U/L Total Protein 6.0 L (6.4-8.2) g/dL Albumin 2.4 L (3.4-5.0) g/dL Globulin 3.6 (2.6-4.0) g/dL Albumin/Globulin Ratio 0.7 L (0.9-1.6) [place] Results Last 24 Hours: Microbiology 12/05/18 08:10 Aerobic Blood Culture - Preliminary Blood - Venous - Lab Draw NO GROWTH AFTER 1 DAY Anaerobic Blood Culture - Preliminary NO GROWTH AFTER 1 DAY 12/05/18 08:03 Aerobic Blood Culture - Preliminary Blood - Venous NO GROWTH AFTER 1 DAY Anaerobic Blood Culture - Preliminary NO GROWTH AFTER 1 DAY Med Orders - Current: Current Medications Acetaminophen (Tylenol) 650 mg PO Q6H PRN PRN Reason: Fever Diphenhydramine HCl (Benadryl) 50 mg PO Q6H PRN PRN Reason: Itching Docusate Sodium (Colace) 100 mg PO DAILY PRN PRN Reason: Constipation Vancomycin HCl 1.25 gm/ Sodium (Chloride) 250 mls @ 250 mls/hr IV Q8H [facility] Last Admin: 12/06/18 03:34 Dose: 250 mls/hr Clindamycin Phosphate 300 mg/ (Premix) 50 mls @ 100 mls/hr IV Q8H [facility] Last Admin: 12/06/18 02:43 Dose: 100 mls/hr Ondansetron HCl (Zofran Odt) 4 mg PO Q6H PRN PRN Reason: Nausea/Vomiting Pantoprazole Sodium (Protonix) 40 mg PO DAILY [facility] Last Admin: 12/06/18 08:32 Dose: 40 mg Sodium Chloride (Saline Flush) 10 ml FLUSH ASDIRECTED PRN PRN Reason: Keep Vein Open Last Admin: 12/05/18 09:08 Dose: 10 ml Sodium Chloride (Saline Flush) 2.5 ml FLUSH ASDIRECTED PRN PRN Reason: Keep Vein Open Last Admin: 12/05/18 09:08 Dose: 2.5 ml Temazepam (Restoril) 15 mg PO BEDTIME PRN PRN Reason: Insomnia Discontinued Medications Diphenhydramine HCl (Benadryl) 25 mg IVPUSH ONETIME ONE Stop: 12/05/18 12:41 Last Admin: 12/05/18 12:48 Dose: 25 mg Gadobenate Dimeglumine (Multihance) 15 ml IVPUSH ONETIME STA Stop: 12/05/18 19:43 Last Admin: 12/05/18 19:43 Dose: 15 ml Ceftriaxone Sodium/Dextrose 1 (gm/ Premix) 50 mls @ 100 mls/hr IV ONETIME ONE Stop: 12/05/18 08:59 Last Admin: 12/05/18 09:07 Dose: 100 mls/hr Clindamycin Phosphate 300 mg/ (Sodium Chloride) 52 mls @ 100 mls/hr IV Q8H [facility] Last Admin: 12/05/18 12:11 Dose: Not Given Vancomycin HCl (Pharmacy To Dose - Vancomycin) 1 dose .XX ASDIRECTED [facility] - Exam General: Alert, Oriented HEENT: Pupils Equal Neck: Supple Lungs: Clear to Auscultation, Normal Respiratory Effort Cardiovascular: Regular Rate, Regular Rhythm GI/Abdominal Exam: Soft, Non-Tender Extremities: Other (left knee: swelling and erythema with interval improvement; no redness beyond lines of demarcation. Left knee full range of motion. Open ulceration still expressing pus.) Psy/Mental Status: Alert, Normal Affect, Normal Mood - Problem List Review Problem List Initiated/Reviewed/Updated: Yes - My Orders Last 24 Hours: My Active Orders 12/05/18 10:46 Vital Signs [RC] Q4H Code Status [Resuscitation Status] Stat 12/05/18 10:47 Activity as Tolerated [RC] .Routine Intake and Output [RC] Q12H 12/05/18 10:48 CHLAMYDIA AND GONORRHEA BY TMA Routine 12/05/18 10:49 Acetaminophen [Tylenol] 650 mg PO Q6H PRN 12/05/18 10:50 Ondansetron [Zofran ODT] 4 mg PO Q6H PRN Temazepam [Restoril] 15 mg PO BEDTIME PRN 12/05/18 11:00 Vancomycin 1.25 gm Sodium Chloride 0.9% [Normal Saline (AdvBag)] 250 ml IV Q8H 12/05/18 11:15 Pantoprazole [ProTONIX] 40 mg PO DAILY 12/05/18 18:27 Docusate Sodium [Colace] 100 mg PO DAILY PRN 12/05/18 18:45 Clindamycin Phosphate in D5W [Cleocin in D5W] 300 mg Premix Bag 1 bag IV Q8H 12/05/18 Lunch Regular Diet [DIET] 12/06/18 09:54 Dressing Change [Wound Care] [RC] Q8H - Plan Plan:: assessment: Admit patient to observation. Full code. Diet: regular. Intake outtake per routine. Vitals per routine. Activity: up ad mark. 1. 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 hypokalemia:resolved 3. Normocytic anemia Plan: 1.Continue vancomycin and clindamycin: 300 mg 3 times a day 7 days. Wound culture ordered prior to initiation of antibiotics. MRI with and without contrast of the left knee: 6mm abscess noted : continue w/ antibiotics, wet-dry dressing , will consider general surgery evaluation if no clinical improvement, 2. gonorrhea/chlamydia urine: ordered for concerns of septic arthritis. 3. Tylenol 600 every 6 hours when necessary fever or pain. We'll consider Toradol if pain is not controlled. 4. Hypokalemia: resolved 5. Normocytic anemia:continue to monitor <Eliecer Antonio - Last Filed: 12/06/18 12:41> - General Info Admission Dx/Problem (Free Text): I have seen and examined the patient independently of medical/surgery registered nurse, Dr. Vijay MD. I have reviewed and agree with the plan of care as outlined for this patient by him. I have discussed the case with him. Please see orders. - Patient Data Vitals - Most Recent: Last Vital Signs Temp 36.7 C 12/06/18 07:43 Pulse 79 12/06/18 07:43 Resp 16 12/06/18 07:43 BP 108/72 12/06/18 07:43 Pulse Ox 98 12/06/18 07:43 I&O - Last 24 Hours: Intake & Output 12/05/18 12/06/18 12/06/18 22:59 06:59 14:59 Intake Total 830 740 420 Balance 830 740 420 Lab Results Last 24 Hours: Laboratory Results - last 24 hr 12/06/18 12/06/18 12/06/18 Range/Units 05:43 05:43 11:24 WBC 5.65 (4.0-11.0) K/uL RBC 4.13 L (4.50-5.90) M/uL Hgb 11.5 L (13.0-17.0) g/dL Hct 34.7 L (38.0-50.0) % MCV 84.0 (80.0-98.0) fL MCH 27.8 (27.0-32.0) pg MCHC 33.1 (31.0-37.0) g/dL RDW Std Deviation 41.1 (28.0-62.0) fl RDW Coeff of Amelie 14 (11.0-15.0) % Plt Count 291 (150-400) K/uL MPV 9.90 (7.40-12.00) fL Neut % (Auto) 59.6 (48.0-80.0) % Lymph % (Auto) 27.4 (16.0-40.0) % [place] % (Auto) 8.5 (0.0-15.0) % Eos % (Auto) 4.1 (0.0-7.0) % Baso % (Auto) 0.4 (0.0-1.5) % Neut # (Auto) 3.4 (1.4-5.7) K/uL Lymph # (Auto) 1.6 (0.6-2.4) K/uL [place] # (Auto) 0.5 (0.0-0.8) K/uL Eos # (Auto) 0.2 (0.0-0.7) K/uL Baso # (Auto) 0.0 (0.0-0.1) K/uL Nucleated RBC % 0.0 /100WBC Nucleated RBCs # 0 K/uL Sodium 142 (136-148) mmol/L Potassium 3.7 (3.5-5.1) mmol/L Chloride 105 (98-107) mmol/L Carbon Dioxide 26.4 (21.0-32.0) mmol/L BUN 7 (7.0-18.0) mg/dL Creatinine 0.8 (0.8-1.3) mg/dL Est Cr Clr Drug Dosing 135.02 mL/min Estimated GFR (MDRD) > 60.0 ml/min Glucose 101 (74-106) mg/dL Calcium 8.8 (8.5-10.1) mg/dL Total Bilirubin 0.3 (0.2-1.0) mg/dL AST 9 L (15-37) IU/L ALT 18 (14-63) IU/L Alkaline Phosphatase 62 (46-116) U/L Total Protein 6.0 L (6.4-8.2) g/dL Albumin 2.4 L (3.4-5.0) g/dL Globulin 3.6 (2.6-4.0) g/dL Albumin/Globulin Ratio 0.7 L (0.9-1.6) Vancomycin Trough 13.1 H (5.0-10.0) ug/mL [place] Results Last 24 Hours: Microbiology 12/05/18 08:10 Aerobic Blood Culture - Preliminary Blood - Venous - Lab Draw NO GROWTH AFTER 1 DAY Anaerobic Blood Culture - Preliminary NO GROWTH AFTER 1 DAY 12/05/18 08:03 Aerobic Blood Culture - Preliminary Blood - Venous NO GROWTH AFTER 1 DAY Anaerobic Blood Culture - Preliminary NO GROWTH AFTER 1 DAY Med Orders - Current: Current Medications Acetaminophen (Tylenol) 650 mg PO Q6H PRN PRN Reason: Fever Diphenhydramine HCl (Benadryl) 50 mg PO Q6H PRN PRN Reason: Itching Docusate Sodium (Colace) 100 mg PO DAILY PRN PRN Reason: Constipation Vancomycin HCl 1.25 gm/ Sodium (Chloride) 250 mls @ 250 mls/hr IV Q8H [facility] Last Admin: 12/06/18 12:39 Dose: 250 mls/hr Clindamycin Phosphate 300 mg/ (Premix) 50 mls @ 100 mls/hr IV Q8H [facility] Last Admin: 12/06/18 10:09 Dose: 100 mls/hr Ondansetron HCl (Zofran Odt) 4 mg PO Q6H PRN PRN Reason: Nausea/Vomiting Pantoprazole Sodium (Protonix) 40 mg PO DAILY [facility] Last Admin: 12/06/18 08:32 Dose: 40 mg Sodium Chloride (Saline Flush) 10 ml FLUSH ASDIRECTED PRN PRN Reason: Keep Vein Open Last Admin: 12/05/18 09:08 Dose: 10 ml Sodium Chloride (Saline Flush) 2.5 ml FLUSH ASDIRECTED PRN PRN Reason: Keep Vein Open Last Admin: 12/05/18 09:08 Dose: 2.5 ml Temazepam (Restoril) 15 mg PO BEDTIME PRN PRN Reason: Insomnia Discontinued Medications Diphenhydramine HCl (Benadryl) 25 mg IVPUSH ONETIME ONE Stop: 12/05/18 12:41 Last Admin: 12/05/18 12:48 Dose: 25 mg Gadobenate Dimeglumine (Multihance) 15 ml IVPUSH ONETIME STA Stop: 12/05/18 19:43 Last Admin: 12/05/18 19:43 Dose: 15 ml Ceftriaxone Sodium/Dextrose 1 (gm/ Premix) 50 mls @ 100 mls/hr IV ONETIME ONE Stop: 12/05/18 08:59 Last Admin: 12/05/18 09:07 Dose: 100 mls/hr Clindamycin Phosphate 300 mg/ (Sodium Chloride) 52 mls @ 100 mls/hr IV Q8H [facility] Last Admin: 12/05/18 12:11 Dose: Not Given Vancomycin HCl (Pharmacy To Dose - Vancomycin) 1 dose .XX ASDIRECTED [facility] - My Orders Last 24 Hours: My Active Orders 12/05/18 23:25 diphenhydrAMINE [Benadryl] 50 mg PO Q6H PRN 12/06/18 11:55 VANCOMYCIN TROUGH [CHEM] Routine
[2018-12-07] MEDS: Clindamycin Phosphate in D5W 300 MG in Premix Bag 1 BAG IV SCH ×6 (02:03→17:46)
[2018-12-07 06:36] LABS: BLOOD UREA NITROGEN,BUN 8 mg/dL (7.0-18.0); CARBON DIOXIDE,CO2 27.5 mmol/L (21.0-32.0); CHLORIDE,CL 105 mmol/L (98-107); GLUCOSE RANDOM 104 mg/dL (74-106); POTASSIUM,K 3.9 mmol/L (3.5-5.1); SODIUM,NA 142 mmol/L (136-148)
[2018-12-07] MEDS: Pantoprazole 40 MG Tab.CR PO SCH (08:31)
--- NOTE | 2018-12-07 09:23 | PCM.PN ---
<Gayatri Linares - Last Filed: 12/07/18 09:18> - General Info Date of Service: 12/07/18 Subjective Update: patient seen at bedside: endorsing no new complaints. States he can bend his knee further today. Denies any fevers, chills, body aches. Denies any other symptoms or concerns at this time - Patient Data Vitals - Most Recent: Last Vital Signs Temp 97.2 F 12/07/18 08:27 Pulse 63 12/07/18 08:27 Resp 16 12/07/18 08:27 BP 113/68 12/07/18 08:27 Pulse Ox 95 12/07/18 08:27 Weight - Most Recent: 76.374 kg I&O - Last 24 Hours: Intake & Output 12/06/18 12/07/18 12/07/18 22:59 06:59 14:59 Intake Total 610 1220 Output Total 600 1140 Balance 10 80 Lab Results Last 24 Hours: Laboratory Results - last 24 hr 12/06/18 12/07/18 12/07/18 Range/Units 11:24 06:00 06:00 WBC 6.20 (4.0-11.0) K/uL RBC 4.38 L (4.50-5.90) M/uL Hgb 12.1 L (13.0-17.0) g/dL Hct 36.6 L (38.0-50.0) % MCV 83.6 (80.0-98.0) fL MCH 27.6 (27.0-32.0) pg MCHC 33.1 (31.0-37.0) g/dL RDW Std Deviation 40.8 (28.0-62.0) fl RDW Coeff of Maelie 13 (11.0-15.0) % Plt Count 312 (150-400) K/uL MPV 9.70 (7.40-12.00) fL Neut % (Auto) 60.0 (48.0-80.0) % Lymph % (Auto) 27.9 (16.0-40.0) % [place] % (Auto) 7.6 (0.0-15.0) % Eos % (Auto) 4.2 (0.0-7.0) % Baso % (Auto) 0.3 (0.0-1.5) % Neut # (Auto) 3.7 (1.4-5.7) K/uL Lymph # (Auto) 1.7 (0.6-2.4) K/uL [place] # (Auto) 0.5 (0.0-0.8) K/uL Eos # (Auto) 0.3 (0.0-0.7) K/uL Baso # (Auto) 0.0 (0.0-0.1) K/uL Nucleated RBC % 0.0 /100WBC Nucleated RBCs # 0 K/uL Sodium 142 (136-148) mmol/L Potassium 3.9 (3.5-5.1) mmol/L Chloride 105 (98-107) mmol/L Carbon Dioxide 27.5 (21.0-32.0) mmol/L BUN 8 (7.0-18.0) mg/dL Creatinine 0.8 (0.8-1.3) mg/dL Est Cr Clr Drug Dosing 135.02 mL/min Estimated GFR (MDRD) > 60.0 ml/min Glucose 104 (74-106) mg/dL Calcium 8.7 (8.5-10.1) mg/dL Total Bilirubin 0.2 (0.2-1.0) mg/dL AST 7 L (15-37) IU/L ALT 19 (14-63) IU/L Alkaline Phosphatase 63 (46-116) U/L Total Protein 6.5 (6.4-8.2) g/dL Albumin 2.5 L (3.4-5.0) g/dL Globulin 4.0 (2.6-4.0) g/dL Albumin/Globulin Ratio 0.6 L (0.9-1.6) Vancomycin Trough 13.1 H (5.0-10.0) ug/mL [place] Results Last 24 Hours: Microbiology 12/05/18 08:10 Aerobic Blood Culture - Preliminary Blood - Venous - Lab Draw NO GROWTH AFTER 2 DAYS Anaerobic Blood Culture - Preliminary NO GROWTH AFTER 2 DAYS 12/05/18 08:03 Aerobic Blood Culture - Preliminary Blood - Venous NO GROWTH AFTER 2 DAYS Anaerobic Blood Culture - Preliminary NO GROWTH AFTER 2 DAYS Med Orders - Current: Current Medications Acetaminophen (Tylenol) 650 mg PO Q6H PRN PRN Reason: Fever Diphenhydramine HCl (Benadryl) 50 mg PO Q6H PRN PRN Reason: Itching Docusate Sodium (Colace) 100 mg PO DAILY PRN PRN Reason: Constipation Vancomycin HCl 1.25 gm/ Sodium (Chloride) 250 mls @ 250 mls/hr IV Q8H [facility] Last Admin: 12/07/18 02:45 Dose: 250 mls/hr Clindamycin Phosphate 300 mg/ (Premix) 50 mls @ 100 mls/hr IV Q8H [facility] Last Admin: 12/07/18 02:03 Dose: 100 mls/hr Ondansetron HCl (Zofran Odt) 4 mg PO Q6H PRN PRN Reason: Nausea/Vomiting Pantoprazole Sodium (Protonix) 40 mg PO DAILY [facility] Last Admin: 12/07/18 08:31 Dose: 40 mg Sodium Chloride (Saline Flush) 10 ml FLUSH ASDIRECTED PRN PRN Reason: Keep Vein Open Last Admin: 12/05/18 09:08 Dose: 10 ml Sodium Chloride (Saline Flush) 2.5 ml FLUSH ASDIRECTED PRN PRN Reason: Keep Vein Open Last Admin: 12/05/18 09:08 Dose: 2.5 ml Temazepam (Restoril) 15 mg PO BEDTIME PRN PRN Reason: Insomnia Discontinued Medications Diphenhydramine HCl (Benadryl) 25 mg IVPUSH ONETIME ONE Stop: 12/05/18 12:41 Last Admin: 12/05/18 12:48 Dose: 25 mg Gadobenate Dimeglumine (Multihance) 15 ml IVPUSH ONETIME STA Stop: 12/05/18 19:43 Last Admin: 12/05/18 19:43 Dose: 15 ml Ceftriaxone Sodium/Dextrose 1 (gm/ Premix) 50 mls @ 100 mls/hr IV ONETIME ONE Stop: 12/05/18 08:59 Last Admin: 12/05/18 09:07 Dose: 100 mls/hr Clindamycin Phosphate 300 mg/ (Sodium Chloride) 52 mls @ 100 mls/hr IV Q8H [facility] Last Admin: 12/05/18 12:11 Dose: Not Given Vancomycin HCl (Pharmacy To Dose - Vancomycin) 1 dose .XX ASDIRECTED [facility] - Exam General: Alert, Oriented HEENT: Pupils Equal, EOMI Lungs: Clear to Auscultation, Normal Respiratory Effort Cardiovascular: Regular Rate, Regular Rhythm Extremities: Other (left knee:interval improvement of erythema and induration. Erythema has improved and has become more localized around the knee. Range of motion improved. Open wound still draining; improved compared to yesterday however.) Skin: Warm Wound/Incisions: Drainage, Erythema, Erythema Improving Psy/Mental Status: Alert, Normal Affect, Normal Mood - Problem List Review Problem List Initiated/Reviewed/Updated: Yes - My Orders Last 24 Hours: My Active Orders 12/06/18 09:54 Dressing Change [Wound Care] [RC] Q12H 12/07/18 09:00 Consult to Physician [CONS] Routine 12/07/18 09:01 Notify Provider Consults [RC] ASDIRECTED - Plan Plan:: assessment: Admit patient to observation. Full code. Diet: regular. Intake outtake per routine. Vitals per routine. Activity: up ad mark. 1. 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 hypokalemia:resolved 3. Normocytic anemia Plan: 1.Continue vancomycin and clindamycin: 300 mg 3 times a day 7 days. Wound culture ordered prior to initiation of antibiotics. MRI with and without contrast of the left knee: 6mm abscess noted : continue w/ antibiotics, wet-dry dressing Consulted Dr Patel of Gen Surgery for any further recommendations: we appreciate her recommendations and evaluation 2. gonorrhea/chlamydia urine: ordered for concerns of septic arthritis. 3. Tylenol 600 every 6 hours when necessary fever or pain. We'll consider Toradol if pain is not controlled. 4. Hypokalemia: resolved 5. Normocytic anemia:continue to monitor <Eliecer Antonio - Last Filed: 12/07/18 17:09> - General Info Admission Dx/Problem (Free Text): I have seen and examined the patient independently of emergency medicine medical director, Dr. Vijay MD. I have reviewed and agree with the plan of care as outlined for this patient by him. I have discussed the case with him. Please see orders. - Patient Data Vitals - Most Recent: Last Vital Signs Temp 36.2 C 12/07/18 08:27 Pulse 63 12/07/18 08:27 Resp 16 12/07/18 08:27 BP 113/68 12/07/18 08:27 Pulse Ox 95 12/07/18 08:27 I&O - Last 24 Hours: Intake & Output 12/07/18 12/07/18 12/07/18 06:59 14:59 22:59 Intake Total 1220 300 300 Output Total 1140 400 Balance 80 300 -100 Lab Results Last 24 Hours: Laboratory Results - last 24 hr 12/07/18 12/07/18 Range/Units 06:00 06:00 WBC 6.20 (4.0-11.0) K/uL RBC 4.38 L (4.50-5.90) M/uL Hgb 12.1 L (13.0-17.0) g/dL Hct 36.6 L (38.0-50.0) % MCV 83.6 (80.0-98.0) fL MCH 27.6 (27.0-32.0) pg MCHC 33.1 (31.0-37.0) g/dL RDW Std Deviation 40.8 (28.0-62.0) fl RDW Coeff of Amelie 13 (11.0-15.0) % Plt Count 312 (150-400) K/uL MPV 9.70 (7.40-12.00) fL Neut % (Auto) 60.0 (48.0-80.0) % Lymph % (Auto) 27.9 (16.0-40.0) % [place] % (Auto) 7.6 (0.0-15.0) % Eos % (Auto) 4.2 (0.0-7.0) % Baso % (Auto) 0.3 (0.0-1.5) % Neut # (Auto) 3.7 (1.4-5.7) K/uL Lymph # (Auto) 1.7 (0.6-2.4) K/uL [place] # (Auto) 0.5 (0.0-0.8) K/uL Eos # (Auto) 0.3 (0.0-0.7) K/uL Baso # (Auto) 0.0 (0.0-0.1) K/uL Nucleated RBC % 0.0 /100WBC Nucleated RBCs # 0 K/uL Sodium 142 (136-148) mmol/L Potassium 3.9 (3.5-5.1) mmol/L Chloride 105 (98-107) mmol/L Carbon Dioxide 27.5 (21.0-32.0) mmol/L BUN 8 (7.0-18.0) mg/dL Creatinine 0.8 (0.8-1.3) mg/dL Est Cr Clr Drug Dosing 135.02 mL/min Estimated GFR (MDRD) > 60.0 ml/min Glucose 104 (74-106) mg/dL Calcium 8.7 (8.5-10.1) mg/dL Total Bilirubin 0.2 (0.2-1.0) mg/dL AST 7 L (15-37) IU/L ALT 19 (14-63) IU/L Alkaline Phosphatase 63 (46-116) U/L Total Protein 6.5 (6.4-8.2) g/dL Albumin 2.5 L (3.4-5.0) g/dL Globulin 4.0 (2.6-4.0) g/dL Albumin/Globulin Ratio 0.6 L (0.9-1.6) [place] Results Last 24 Hours: Microbiology 12/05/18 08:10 Aerobic Blood Culture - Preliminary Blood - Venous - Lab Draw NO GROWTH AFTER 2 DAYS Anaerobic Blood Culture - Preliminary NO GROWTH AFTER 2 DAYS 12/05/18 08:03 Aerobic Blood Culture - Preliminary Blood - Venous NO GROWTH AFTER 2 DAYS Anaerobic Blood Culture - Preliminary NO GROWTH AFTER 2 DAYS Med Orders - Current: Current Medications Acetaminophen (Tylenol) 650 mg PO Q6H PRN PRN Reason: Fever Diphenhydramine HCl (Benadryl) 50 mg PO Q6H PRN PRN Reason: Itching Docusate Sodium (Colace) 100 mg PO DAILY PRN PRN Reason: Constipation Vancomycin HCl 1.25 gm/ Sodium (Chloride) 250 mls @ 250 mls/hr IV Q8H [facility] Last Admin: 12/07/18 12:20 Dose: 250 mls/hr Clindamycin Phosphate 300 mg/ (Premix) 50 mls @ 100 mls/hr IV Q8H [facility] Last Admin: 12/07/18 10:51 Dose: 100 mls/hr Ondansetron HCl (Zofran Odt) 4 mg PO Q6H PRN PRN Reason: Nausea/Vomiting Pantoprazole Sodium (Protonix) 40 mg PO DAILY [facility] Last Admin: 12/07/18 08:31 Dose: 40 mg Sodium Chloride (Saline Flush) 10 ml FLUSH ASDIRECTED PRN PRN Reason: Keep Vein Open Last Admin: 12/05/18 09:08 Dose: 10 ml Sodium Chloride (Saline Flush) 2.5 ml FLUSH ASDIRECTED PRN PRN Reason: Keep Vein Open Last Admin: 12/05/18 09:08 Dose: 2.5 ml Temazepam (Restoril) 15 mg PO BEDTIME PRN PRN Reason: Insomnia Discontinued Medications Diphenhydramine HCl (Benadryl) 25 mg IVPUSH ONETIME ONE Stop: 12/05/18 12:41 Last Admin: 12/05/18 12:48 Dose: 25 mg Gadobenate Dimeglumine (Multihance) 15 ml IVPUSH ONETIME STA Stop: 12/05/18 19:43 Last Admin: 12/05/18 19:43 Dose: 15 ml Ceftriaxone Sodium/Dextrose 1 (gm/ Premix) 50 mls @ 100 mls/hr IV ONETIME ONE Stop: 12/05/18 08:59 Last Admin: 12/05/18 09:07 Dose: 100 mls/hr Clindamycin Phosphate 300 mg/ (Sodium Chloride) 52 mls @ 100 mls/hr IV Q8H [facility] Last Admin: 12/05/18 12:11 Dose: Not Given Vancomycin HCl (Pharmacy To Dose - Vancomycin) 1 dose .XX ASDIRECTED [facility] - My Orders Last 24 Hours: My Active Orders 12/07/18 13:26 Admission Status [Patient Status] [ADT] Routine 12/10/18 10:30 VANCOMYCIN TROUGH [CHEM] Timed
--- NOTE | 2018-12-07 12:55 | PCM.CONS ---
H&P History of Present Illness - General Date of Service: 12/07/18 Admit Problem/Dx: I have seen and examined the patient independently of medical transcription editor, Dr. Vijay MD. I have reviewed and agree with the plan of care as outlined for this patient by him. I have discussed the case with him. Please see orders. Source of Information: Patient History Limitations: Reports: No Limitations - History of Present Illness Initial Comments - Free Text/Narative: Patient is a 28-year-old male who presented with left knee cellulitis. As a small opening on the anterior aspect of his left patella. He has a history of MRSA infection. He has been on IV antibiotics and his cellulitis has improved. He recently had an MRI of the need to rule out any joint capsular involvement. This showed no evidence of joint space infection but there was a possible abscess in the anterior-medial superior soft tissues overlying the patella. I was asked to evaluate the area. Left Knee Pain Score (Numeric/FACES): 2 - Related Data Allergies/Adverse Reactions: Allergies Allergy/AdvReac Type Severity Reaction Status Date / Time No Known Allergies Allergy Verified 12/05/18 12:12 Home Medications: Home Meds . [No Known Home Meds] 08/10/18 [History] Past Medical History - Past Health History Medical/Surgical History: Denies Medical/Surgical History HEENT History: Reports: None Cardiovascular History: Reports: None Respiratory History: Reports: None Gastrointestinal History: Reports: None Genitourinary History: Reports: None Musculoskeletal History: Reports: None Neurological History: Reports: None Psychiatric History: Reports: None Endocrine/Metabolic History: Reports: None Hematologic History: Reports: None Immunologic History: Reports: None Oncologic (Cancer) History: Reports: None Dermatologic History: Reports: None - Infectious Disease History Infectious Disease History: Reports: Other (See Below) Other Infectious Disease History: Unknown if he has had chickenpox. - Past Surgical History Head Surgeries/Procedures: Reports: None Male Surgical History: Reports: None Social & Family History - Family History Family Medical History: Noncontributory - Tobacco Use Smoking Status *Q: Never Smoker Second Hand Smoke Exposure: No - Caffeine Use Caffeine Use: Reports: Coffee, Soda, Tea - Recreational Drug Use Recreational Drug Use: No H&P Review of Systems - Review of Systems: Review Of Systems: ROS reveals no pertinent complaints other than HPI. Exam - Exam Exam: See Below - Vital Signs Vital Signs: Last Vital Signs Temp 36.2 C 12/07/18 08:27 Pulse 63 12/07/18 08:27 Resp 16 12/07/18 08:27 BP 113/68 12/07/18 08:27 Pulse Ox 95 12/07/18 08:27 Weight: 76.374 kg - Exam General: Alert, Oriented HEENT: Conjunctiva Clear, Mucosa Moist & [place], Posterior Pharynx Clear Lungs: Normal Respiratory Effort Cardiovascular: Regular Rate Extremities: Other (3 mm opening over the medial aspect of the left patella. There is an area of fluctuance 2 cm superior to this. I explored the wound with a cotton-tipped applicator but could not find a connection. The patient has decreased flexion due to swelling and pain of the soft tissues.) - Patient Data Lab Results Last 24 hrs: Laboratory Results - last 24 hr 12/07/18 12/07/18 Range/Units 06:00 06:00 WBC 6.20 (4.0-11.0) K/uL RBC 4.38 L (4.50-5.90) M/uL Hgb 12.1 L (13.0-17.0) g/dL Hct 36.6 L (38.0-50.0) % MCV 83.6 (80.0-98.0) fL MCH 27.6 (27.0-32.0) pg MCHC 33.1 (31.0-37.0) g/dL RDW Std Deviation 40.8 (28.0-62.0) fl RDW Coeff of Amelie 13 (11.0-15.0) % Plt Count 312 (150-400) K/uL MPV 9.70 (7.40-12.00) fL Neut % (Auto) 60.0 (48.0-80.0) % Lymph % (Auto) 27.9 (16.0-40.0) % [place] % (Auto) 7.6 (0.0-15.0) % Eos % (Auto) 4.2 (0.0-7.0) % Baso % (Auto) 0.3 (0.0-1.5) % Neut # (Auto) 3.7 (1.4-5.7) K/uL Lymph # (Auto) 1.7 (0.6-2.4) K/uL [place] # (Auto) 0.5 (0.0-0.8) K/uL Eos # (Auto) 0.3 (0.0-0.7) K/uL Baso # (Auto) 0.0 (0.0-0.1) K/uL Nucleated RBC % 0.0 /100WBC Nucleated RBCs # 0 K/uL Sodium 142 (136-148) mmol/L Potassium 3.9 (3.5-5.1) mmol/L Chloride 105 (98-107) mmol/L Carbon Dioxide 27.5 (21.0-32.0) mmol/L BUN 8 (7.0-18.0) mg/dL Creatinine 0.8 (0.8-1.3) mg/dL Est Cr Clr Drug Dosing 135.02 mL/min Estimated GFR (MDRD) > 60.0 ml/min Glucose 104 (74-106) mg/dL Calcium 8.7 (8.5-10.1) mg/dL Total Bilirubin 0.2 (0.2-1.0) mg/dL AST 7 L (15-37) IU/L ALT 19 (14-63) IU/L Alkaline Phosphatase 63 (46-116) U/L Total Protein 6.5 (6.4-8.2) g/dL Albumin 2.5 L (3.4-5.0) g/dL Globulin 4.0 (2.6-4.0) g/dL Albumin/Globulin Ratio 0.6 L (0.9-1.6) Result Diagrams: 12/07/18 06:00 12/07/18 06:00 [place] Results Last 24 hrs: Microbiology 12/05/18 08:10 Aerobic Blood Culture - Preliminary Blood - Venous - Lab Draw NO GROWTH AFTER 2 DAYS Anaerobic Blood Culture - Preliminary NO GROWTH AFTER 2 DAYS 12/05/18 08:03 Aerobic Blood Culture - Preliminary Blood - Venous NO GROWTH AFTER 2 DAYS Anaerobic Blood Culture - Preliminary NO GROWTH AFTER 2 DAYS Consult PN Assessment/Plan Procedures: Procedures EMERGENCY DEPT VISIT (08/10/18) GLUCOSE BLOOD TEST (08/10/18) (1) Abscess SNOMED Code(s): 007630501 Code(s): L02.91 - CUTANEOUS ABSCESS, UNSPECIFIED Current Visit: Yes (2) Left leg cellulitis SNOMED Code(s): 180128731 Code(s): L03.116 - CELLULITIS OF LEFT LOWER LIMB Current Visit: Yes Problem List Initiated/Reviewed/Updated: Yes My Orders Last 24 Hours: My Active Orders 12/07/18 12:49 Communication Order [RC] ROUTINE 12/07/18 Dinner NPO After Midnight [Nothing per Oral After Midnight Diet] [DIET] 12/08/18 Breakfast NPO [Nothing Per Oral Diet] [DIET] Plan: I reviewed the images with one of my orthopedic colleagues who agrees that the infection appears to be limited to the soft tissues. On physical exam he does have an area of fluctuance but doesn't appear to be draining actively but may be connected to the small opening on his patella. In order to explore this fully I will need to take the patient to the operating room for incision and drainage of the left knee abscess. I explained the procedure, expected perioperative course as well as the risks including bleeding or infection. Should I see that the wound actually does extend into the joint capsule I will refer him to an orthopedic surgeon which would require transfer to a separate facility. He verbalized understanding and wishes to proceed. he can eat a regular diet today and a clear liquid breakfast tomorrow. He should be strictly nothing by mouth after 8:00 AM.
[2018-12-07] MEDS: oxyCODONE 5 MG Tab PO PRN (21:54)
[2018-12-08] MEDS: Clindamycin Phosphate in D5W 300 MG in Premix Bag 1 BAG IV SCH ×2 (02:01)
[2018-12-08] MEDS: oxyCODONE 5 MG Tab PO PRN ×3 (04:26→20:47)
--- NOTE | 2018-12-08 08:01 | PCM.PN ---
<Gayatri Linares - Last Filed: 12/08/18 09:50> - General Info Date of Service: 12/08/18 Subjective Update: Seen at bedside. No new complaints since last night. No issues or concerns at this time. - Patient Data Vitals - Most Recent: Last Vital Signs Temp 96.8 F 12/08/18 07:52 Pulse 62 12/08/18 07:52 Resp 16 12/08/18 07:52 BP 119/70 12/08/18 07:52 Pulse Ox 95 12/08/18 07:52 Weight - Most Recent: 76.374 kg I&O - Last 24 Hours: Intake & Output 12/07/18 12/08/18 12/08/18 22:59 06:59 14:59 Intake Total 350 1300 Output Total 400 1400 Balance -50 -100 [place] Results Last 24 Hours: Microbiology 12/05/18 08:10 Aerobic Blood Culture - Preliminary Blood - Venous - Lab Draw NO GROWTH AFTER 2 DAYS Anaerobic Blood Culture - Preliminary NO GROWTH AFTER 2 DAYS 12/05/18 08:03 Aerobic Blood Culture - Preliminary Blood - Venous NO GROWTH AFTER 2 DAYS Anaerobic Blood Culture - Preliminary NO GROWTH AFTER 2 DAYS Med Orders - Current: Current Medications Acetaminophen (Tylenol) 650 mg PO Q6H PRN PRN Reason: Fever Last Admin: 12/08/18 02:45 Dose: 650 mg Diphenhydramine HCl (Benadryl) 50 mg PO Q6H PRN PRN Reason: Itching Docusate Sodium (Colace) 100 mg PO DAILY PRN PRN Reason: Constipation Vancomycin HCl 1.25 gm/ Sodium (Chloride) 250 mls @ 250 mls/hr IV Q8H [facility] Last Admin: 12/08/18 02:47 Dose: 250 mls/hr Clindamycin Phosphate 300 mg/ (Premix) 50 mls @ 100 mls/hr IV Q8H [facility] Last Admin: 12/08/18 02:01 Dose: 100 mls/hr Ondansetron HCl (Zofran Odt) 4 mg PO Q6H PRN PRN Reason: Nausea/Vomiting Oxycodone HCl (Oxycodone) 5 mg PO Q6H PRN PRN Reason: Pain Last Admin: 12/08/18 04:26 Dose: 5 mg Pantoprazole Sodium (Protonix) 40 mg PO DAILY [facility] Last Admin: 12/07/18 08:31 Dose: 40 mg Sodium Chloride (Saline Flush) 10 ml FLUSH ASDIRECTED PRN PRN Reason: Keep Vein Open Last Admin: 12/05/18 09:08 Dose: 10 ml Sodium Chloride (Saline Flush) 2.5 ml FLUSH ASDIRECTED PRN PRN Reason: Keep Vein Open Last Admin: 12/05/18 09:08 Dose: 2.5 ml Temazepam (Restoril) 15 mg PO BEDTIME PRN PRN Reason: Insomnia Discontinued Medications Diphenhydramine HCl (Benadryl) 25 mg IVPUSH ONETIME ONE Stop: 12/05/18 12:41 Last Admin: 12/05/18 12:48 Dose: 25 mg Gadobenate Dimeglumine (Multihance) 15 ml IVPUSH ONETIME STA Stop: 12/05/18 19:43 Last Admin: 12/05/18 19:43 Dose: 15 ml Ceftriaxone Sodium/Dextrose 1 (gm/ Premix) 50 mls @ 100 mls/hr IV ONETIME ONE Stop: 12/05/18 08:59 Last Admin: 12/05/18 09:07 Dose: 100 mls/hr Clindamycin Phosphate 300 mg/ (Sodium Chloride) 52 mls @ 100 mls/hr IV Q8H [facility] Last Admin: 12/05/18 12:11 Dose: Not Given Vancomycin HCl (Pharmacy To Dose - Vancomycin) 1 dose .XX ASDIRECTED [facility] - Exam General: Alert, Oriented HEENT: EOMI Neck: Supple Lungs: Clear to Auscultation, Normal Respiratory Effort Cardiovascular: Regular Rate, Regular Rhythm Wound/Incisions: Drainage, Other (left knee: 1.5 cm open wound over knee , interval improvement of indurationa and surounding erythema, pus drainage +.. ROM improved) Neurological: No New Focal Deficit Psy/Mental Status: Alert, Normal Affect, Normal Mood - Problem List Review Problem List Initiated/Reviewed/Updated: Yes - My Orders Last 24 Hours: My Active Orders 12/07/18 09:00 Consult to Physician [CONS] Routine 12/07/18 09:01 Notify Provider Consults [RC] ASDIRECTED - Plan Plan:: assessment: Admit patient to observation. Full code. Diet: regular. Intake outtake per routine. Vitals per routine. Activity: up ad mark. 1. 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 hypokalemia:resolved 3. Normocytic anemia Plan: 1.Continue vancomycin and clindamycin: 300 mg 3 times a day 7 days. Wound culture ordered prior to initiation of antibiotics. MRI with and without contrast of the left knee: 6mm abscess noted : continue w/ antibiotics, wet-dry dressing Consulted Dr Patel of Gen Surgery : scheduled for I & D this afternoon, we appreciate Dr Man's consultation and expertise. 2. gonorrhea/chlamydia urine: ordered for concerns of septic arthritis. 3. Tylenol 600 every 6 hours when necessary fever or pain. We'll consider Toradol if pain is not controlled. 4. Hypokalemia: resolved 5. Normocytic anemia:continue to monitor <Eliecer Antonio - Last Filed: 12/08/18 11:19> - General Info Admission Dx/Problem (Free Text): I have seen and examined the patient independently of medical imaging director, Dr. Vijay MD. I have reviewed and agree with the plan of care as outlined for this patient by him. I have discussed the case with him. Please see orders. - Patient Data Vitals - Most Recent: Last Vital Signs Temp 36.0 C 12/08/18 07:52 Pulse 62 12/08/18 07:52 Resp 16 12/08/18 07:52 BP 119/70 12/08/18 07:52 Pulse Ox 95 12/08/18 07:52 I&O - Last 24 Hours: Intake & Output 12/07/18 12/08/18 12/08/18 22:59 06:59 14:59 Intake Total 350 1300 50 Output Total 400 1400 Balance -50 -100 50 Lab Results Last 24 Hours: Laboratory Results - last 24 hr 12/05/18 12/08/18 Range/Units 19:10 10:43 WBC 5.94 (4.0-11.0) K/uL RBC 4.60 (4.50-5.90) M/uL Hgb 12.7 L (13.0-17.0) g/dL Hct 38.4 (38.0-50.0) % MCV 83.5 (80.0-98.0) fL MCH 27.6 (27.0-32.0) pg MCHC 33.1 (31.0-37.0) g/dL RDW Std Deviation 40.2 (28.0-62.0) fl RDW Coeff of Amelie 13 (11.0-15.0) % Plt Count 330 (150-400) K/uL MPV 9.60 (7.40-12.00) fL Neut % (Auto) 51.1 (48.0-80.0) % Lymph % (Auto) 36.0 (16.0-40.0) % [place] % (Auto) 7.6 (0.0-15.0) % Eos % (Auto) 4.5 (0.0-7.0) % Baso % (Auto) 0.8 (0.0-1.5) % Neut # (Auto) 3.0 (1.4-5.7) K/uL Lymph # (Auto) 2.1 (0.6-2.4) K/uL [place] # (Auto) 0.5 (0.0-0.8) K/uL Eos # (Auto) 0.3 (0.0-0.7) K/uL Baso # (Auto) 0.1 (0.0-0.1) K/uL Nucleated RBC % 0.0 /100WBC Nucleated RBCs # 0 K/uL Chlamydia/GC Source URINE C.trachomatis RNA (TMA) Negative (Negative) N.gonorrhoeae RNA (TMA) Negative (Negative) [place] Results Last 24 Hours: Microbiology 12/05/18 08:10 Aerobic Blood Culture - Preliminary Blood - Venous - Lab Draw NO GROWTH AFTER 3 DAYS Anaerobic Blood Culture - Preliminary NO GROWTH AFTER 3 DAYS 12/05/18 08:03 Aerobic Blood Culture - Preliminary Blood - Venous NO GROWTH AFTER 3 DAYS Anaerobic Blood Culture - Preliminary NO GROWTH AFTER 3 DAYS Med Orders - Current: Current Medications Acetaminophen (Tylenol) 650 mg PO Q6H PRN PRN Reason: Fever Last Admin: 12/08/18 02:45 Dose: 650 mg Diphenhydramine HCl (Benadryl) 50 mg PO Q6H PRN PRN Reason: Itching Docusate Sodium (Colace) 100 mg PO DAILY PRN PRN Reason: Constipation Vancomycin HCl 1.25 gm/ Sodium (Chloride) 250 mls @ 250 mls/hr IV Q8H [facility] Last Admin: 12/08/18 02:47 Dose: 250 mls/hr Clindamycin Phosphate 300 mg/ (Premix) 50 mls @ 100 mls/hr IV Q8H [facility] Last Admin: 12/08/18 10:17 Dose: 100 mls/hr Ondansetron HCl (Zofran Odt) 4 mg PO Q6H PRN PRN Reason: Nausea/Vomiting Oxycodone HCl (Oxycodone) 5 mg PO Q6H PRN PRN Reason: Pain Last Admin: 12/08/18 04:26 Dose: 5 mg Pantoprazole Sodium (Protonix) 40 mg PO DAILY [facility] Last Admin: 12/08/18 09:32 Dose: Not Given Sodium Chloride (Saline Flush) 10 ml FLUSH ASDIRECTED PRN PRN Reason: Keep Vein Open Last Admin: 12/05/18 09:08 Dose: 10 ml Sodium Chloride (Saline Flush) 2.5 ml FLUSH ASDIRECTED PRN PRN Reason: Keep Vein Open Last Admin: 12/05/18 09:08 Dose: 2.5 ml Temazepam (Restoril) 15 mg PO BEDTIME PRN PRN Reason: Insomnia Discontinued Medications Diphenhydramine HCl (Benadryl) 25 mg IVPUSH ONETIME ONE Stop: 12/05/18 12:41 Last Admin: 12/05/18 12:48 Dose: 25 mg Gadobenate Dimeglumine (Multihance) 15 ml IVPUSH ONETIME STA Stop: 12/05/18 19:43 Last Admin: 12/05/18 19:43 Dose: 15 ml Ceftriaxone Sodium/Dextrose 1 (gm/ Premix) 50 mls @ 100 mls/hr IV ONETIME ONE Stop: 12/05/18 08:59 Last Admin: 12/05/18 09:07 Dose: 100 mls/hr Clindamycin Phosphate 300 mg/ (Sodium Chloride) 52 mls @ 100 mls/hr IV Q8H [facility] Last Admin: 12/05/18 12:11 Dose: Not Given Clindamycin Phosphate 300 mg/ (Premix) 50 mls @ 100 mls/hr IV Q8H [facility] Last Admin: 12/08/18 02:01 Dose: 100 mls/hr Vancomycin HCl (Pharmacy To Dose - Vancomycin) 1 dose .XX ASDIRECTED [facility] - My Orders Last 24 Hours: My Active Orders 12/07/18 13:26 Admission Status [Patient Status] [ADT] Routine 12/07/18 21:43 oxyCODONE 5 mg PO Q6H PRN 12/10/18 10:30 VANCOMYCIN TROUGH [CHEM] Timed
[2018-12-08] MEDS: Pantoprazole 40 MG Tab.CR PO SCH (09:32)
[2018-12-08] MEDS: CLINDAMYCIN PHOSPHATE IV SCH ×2 (10:17→18:35)
[2018-12-08] MEDS: D5W IV SCH ×2 (10:17→18:35)
--- NOTE | 2018-12-08 10:35 | PCM.PREANE ---
Preanesthetic Assessment - Anesthesia/Transfusion/Family Hx Anesthesia History: No Prior Anesthesia Family History of Anesthesia Reaction: No - Review of Systems General: No Symptoms Pulmonary: No Symptoms Cardiovascular: No Symptoms Gastrointestinal: No Symptoms Neurological: No Symptoms Other: Reports: None - Physical Assessment NPO Status Date: 12/08/18 NPO Status Time: 00:05 Vital Signs: Last Vital Signs Temp 36.0 C 12/08/18 07:52 Pulse 62 12/08/18 07:52 Resp 16 12/08/18 07:52 BP 119/70 12/08/18 07:52 Pulse Ox 95 12/08/18 07:52 Height: 1.75 m Weight: 76.374 kg ASA Class: 1 Mental Status: Alert & Oriented x3 Dentition: Reports: Broken Tooth/Teeth - Lab Values: Laboratory Last Values WBC 6.20 K/uL (4.0-11.0) 12/07/18 06:00 RBC 4.38 M/uL (4.50-5.90) L 12/07/18 06:00 Hgb 12.1 g/dL (13.0-17.0) L 12/07/18 06:00 Hct 36.6 % (38.0-50.0) L 12/07/18 06:00 MCV 83.6 fL (80.0-98.0) 12/07/18 06:00 MCH 27.6 pg (27.0-32.0) 12/07/18 06:00 MCHC 33.1 g/dL (31.0-37.0) 12/07/18 06:00 RDW Std Deviation 40.8 fl (28.0-62.0) 12/07/18 06:00 RDW Coeff of Amelie 13 % (11.0-15.0) 12/07/18 06:00 Plt Count 312 K/uL (150-400) 12/07/18 06:00 MPV 9.70 fL (7.40-12.00) 12/07/18 06:00 Neut % (Auto) 60.0 % (48.0-80.0) 12/07/18 06:00 Lymph % (Auto) 27.9 % (16.0-40.0) 12/07/18 06:00 [place] % (Auto) 7.6 % (0.0-15.0) 12/07/18 06:00 Eos % (Auto) 4.2 % (0.0-7.0) 12/07/18 06:00 Baso % (Auto) 0.3 % (0.0-1.5) 12/07/18 06:00 Neut # (Auto) 3.7 K/uL (1.4-5.7) 12/07/18 06:00 Lymph # (Auto) 1.7 K/uL (0.6-2.4) 12/07/18 06:00 [place] # (Auto) 0.5 K/uL (0.0-0.8) 12/07/18 06:00 Eos # (Auto) 0.3 K/uL (0.0-0.7) 12/07/18 06:00 Baso # (Auto) 0.0 K/uL (0.0-0.1) 12/07/18 06:00 Nucleated RBC % 0.0 /100WBC 12/07/18 06:00 Nucleated RBCs # 0 K/uL 12/07/18 06:00 ESR 39 mm/hr (0-14) H 12/05/18 08:03 Lactate 0.7 mmol/L (0.20-2.00) 12/05/18 08:03 Sodium 142 mmol/L (136-148) 12/07/18 06:00 Potassium 3.9 mmol/L (3.5-5.1) 12/07/18 06:00 Chloride 105 mmol/L (98-107) 12/07/18 06:00 Carbon Dioxide 27.5 mmol/L (21.0-32.0) 12/07/18 06:00 BUN 8 mg/dL (7.0-18.0) 12/07/18 06:00 Creatinine 0.8 mg/dL (0.8-1.3) 12/07/18 06:00 Est Cr Clr Drug Dosing 135.02 mL/min 12/07/18 06:00 Estimated GFR (MDRD) > 60.0 ml/min 12/07/18 06:00 Glucose 104 mg/dL (74-106) 12/07/18 06:00 Calcium 8.7 mg/dL (8.5-10.1) 12/07/18 06:00 Total Bilirubin 0.2 mg/dL (0.2-1.0) 12/07/18 06:00 AST 7 IU/L (15-37) L 12/07/18 06:00 ALT 19 IU/L (14-63) 12/07/18 06:00 Alkaline Phosphatase 63 U/L (46-116) 12/07/18 06:00 C-Reactive Protein 21.30 mg/dL (0.00-0.90) H 12/05/18 08:03 Total Protein 6.5 g/dL (6.4-8.2) 12/07/18 06:00 Albumin 2.5 g/dL (3.4-5.0) L 12/07/18 06:00 Globulin 4.0 g/dL (2.6-4.0) 12/07/18 06:00 Albumin/Globulin Ratio 0.6 (0.9-1.6) L 12/07/18 06:00 Vancomycin Trough 13.1 ug/mL (5.0-10.0) H 12/06/18 11:24 - Allergies Allergies/Adverse Reactions: Allergies Allergy/AdvReac Type Severity Reaction Status Date / Time No Known Allergies Allergy Verified 12/05/18 12:12 - Acknowledgements Anesthesia Type Planned: General Anesthesia, MAC Pt an Appropriate Candidate for the Planned Anesthesia: Yes Alternatives and Risks of Anesthesia Discussed w Pt/Guardian: Yes Pt/Guardian Understands and Agrees with Anesthesia Plan: Yes PreAnesthesia Questionnaire - Past Health History Medical/Surgical History: Denies Medical/Surgical History HEENT History: Reports: None Cardiovascular History: Reports: None Respiratory History: Reports: None Gastrointestinal History: Reports: None Genitourinary History: Reports: None Musculoskeletal History: Reports: None Neurological History: Reports: None Psychiatric History: Reports: None Endocrine/Metabolic History: Reports: None Hematologic History: Reports: None Immunologic History: Reports: None Oncologic (Cancer) History: Reports: None Dermatologic History: Reports: None - Infectious Disease History Infectious Disease History: Reports: Other (See Below) Other Infectious Disease History: Unknown if he has had chickenpox. - Past Surgical History Head Surgeries/Procedures: Reports: None Male Surgical History: Reports: None - SUBSTANCE USE Smoking Status *Q: Never Smoker Tobacco Use Within Last Twelve Months: No Second Hand Smoke Exposure: No Recreational Drug Use History: No - HOME MEDS Home Medications: Home Meds . [No Known Home Meds] 08/10/18 [History] - CURRENT (IN HOUSE) MEDS Current Meds: Current Medications Acetaminophen (Tylenol) 650 mg PO Q6H PRN PRN Reason: Fever Last Admin: 12/08/18 02:45 Dose: 650 mg Diphenhydramine HCl (Benadryl) 50 mg PO Q6H PRN PRN Reason: Itching Docusate Sodium (Colace) 100 mg PO DAILY PRN PRN Reason: Constipation Vancomycin HCl 1.25 gm/ Sodium (Chloride) 250 mls @ 250 mls/hr IV Q8H [facility] Last Admin: 12/08/18 02:47 Dose: 250 mls/hr Clindamycin Phosphate 300 mg/ (Premix) 50 mls @ 100 mls/hr IV Q8H [facility] Last Admin: 12/08/18 10:17 Dose: 100 mls/hr Ondansetron HCl (Zofran Odt) 4 mg PO Q6H PRN PRN Reason: Nausea/Vomiting Oxycodone HCl (Oxycodone) 5 mg PO Q6H PRN PRN Reason: Pain Last Admin: 12/08/18 04:26 Dose: 5 mg Pantoprazole Sodium (Protonix) 40 mg PO DAILY [facility] Last Admin: 12/08/18 09:32 Dose: Not Given Sodium Chloride (Saline Flush) 10 ml FLUSH ASDIRECTED PRN PRN Reason: Keep Vein Open Last Admin: 12/05/18 09:08 Dose: 10 ml Sodium Chloride (Saline Flush) 2.5 ml FLUSH ASDIRECTED PRN PRN Reason: Keep Vein Open Last Admin: 12/05/18 09:08 Dose: 2.5 ml Temazepam (Restoril) 15 mg PO BEDTIME PRN PRN Reason: Insomnia Discontinued Medications Diphenhydramine HCl (Benadryl) 25 mg IVPUSH ONETIME ONE Stop: 12/05/18 12:41 Last Admin: 12/05/18 12:48 Dose: 25 mg Gadobenate Dimeglumine (Multihance) 15 ml IVPUSH ONETIME STA Stop: 12/05/18 19:43 Last Admin: 12/05/18 19:43 Dose: 15 ml Ceftriaxone Sodium/Dextrose 1 (gm/ Premix) 50 mls @ 100 mls/hr IV ONETIME ONE Stop: 12/05/18 08:59 Last Admin: 12/05/18 09:07 Dose: 100 mls/hr Clindamycin Phosphate 300 mg/ (Sodium Chloride) 52 mls @ 100 mls/hr IV Q8H [facility] Last Admin: 12/05/18 12:11 Dose: Not Given Clindamycin Phosphate 300 mg/ (Premix) 50 mls @ 100 mls/hr IV Q8H [facility] Last Admin: 12/08/18 02:01 Dose: 100 mls/hr Vancomycin HCl (Pharmacy To Dose - Vancomycin) 1 dose .XX ASDIRECTED [facility]
[2018-12-08 11:17] LABS: BLOOD UREA NITROGEN,BUN 10 mg/dL (7.0-18.0); CARBON DIOXIDE,CO2 27.7 mmol/L (21.0-32.0); CHLORIDE,CL 105 mmol/L (98-107); GLUCOSE RANDOM 99 mg/dL (74-106); SODIUM,NA 141 mmol/L (136-148)
[2018-12-08] MEDS ORDERED: Propofol 200 MG/20 ML SDV ONE (11:20)
[2018-12-08] MEDS ORDERED: fentaNYL 100 MCG/2 ML SDV ONE (11:20)
[2018-12-08] MEDS ORDERED: Midazolam 1 MG/ML 2 ML SDV ONE ×2 (11:20→12:44)
[2018-12-08] MEDS ORDERED: Lidocaine 2% 5 ML SDV ONE (11:20)
[2018-12-08] MEDS ORDERED: ceFAZolin 1 GM Vial ONE (12:49)
[2018-12-08] MEDS ORDERED: Bupivacaine 0.5% 10 ML SDV ONE (12:49)
[2018-12-08] MEDS ORDERED: Lidocaine 1% with EPINEPHrine 1:100,000 20 ML MDV ONE (13:14)
[2018-12-08] MEDS ORDERED: Ketorolac 30 MG/ML SDV ONE (13:20)
[2018-12-08] MEDS ORDERED: Naloxone 0.4 MG/ML Syringe IVPUSH PRN (13:41)
[2018-12-08] MEDS ORDERED: 50% Dextrose in Water 50 ML Syringe IVPUSH PRN (13:41)
[2018-12-08] MEDS ORDERED: Atropine 0.1 MG/ML 10 ML Syringe IVPUSH PRN ×2 (13:41)
[2018-12-08] MEDS ORDERED: Albuterol 0.083% 2.5 MG/3 ML Neb Soln NEB PRN (13:41)
[2018-12-08] MEDS ORDERED: EPINEPHrine 1:10,000 1 MG/10 ML Syringe IVPUSH PRN (13:41)
[2018-12-08] MEDS ORDERED: fentaNYL 100 MCG/2 ML SDV IVPUSH PRN (13:41)
--- NOTE | 2018-12-08 13:51 | PCM.POSTAN ---
POST ANESTHESIA ASSESSMENT - MENTAL STATUS Mental Status: Alert, Oriented - VITAL SIGNS Vital Signs: Last Vital Signs Temp 96.8 F 12/08/18 07:52 Pulse 70 12/08/18 13:46 Resp 11 L 12/08/18 13:46 BP 114/76 12/08/18 13:46 Pulse Ox 98 12/08/18 13:46 - RESPIRATORY Respiratory Status: Respiratory Rate WNL, Airway Patent, O2 Saturation Stable - CARDIOVASCULAR CV Status: Pulse Rate WNL, Blood Pressure Stable - GASTROINTESTINAL GI Status: No Symptoms - POST OP HYDRATION Hydration Status: Adequate & Stable
--- NOTE | 2018-12-08 14:08 | PCM.OPNOTE ---
- General Post-Op/Procedure Note Date of Surgery/Procedure: 12/08/18 Operative Procedure(s): Incision and drainage left knee abscess Findings: 5 x 2 cm abscess extending from left medial anterior knee wound superiorly. Wound contents appeared to be bloody concerning for possible infected hematoma Pre Op Diagnosis: Left knee abscess Post-Op Diagnosis: same Anesthesia Technique: MAC Primary Surgeon: Cristina Man Condition: Stable Free Text/Narrative:: Intake & Output 12/07/18 12/08/18 12/08/18 22:59 06:59 14:59 Intake Total 350 1300 1100 Output Total 400 1400 Balance -50 -100 1100
[2018-12-08] MEDS ORDERED: Clindamycin Phosphate in D5W 50 ML IV ONE (18:30)
[2018-12-09] MEDS ORDERED: Clindamycin Phosphate in D5W 50 ML IV SCH (02:00)
[2018-12-09] MEDS ORDERED: Clindamycin Phosphate in D5W 0 ML IV ONE (02:22)
[2018-12-09] MEDS: Clindamycin Phosphate in D5W 300 MG in Premix Bag 1 BAG IV SCH ×6 (02:39→10:49)
[2018-12-09] MEDS: oxyCODONE 5 MG Tab PO PRN ×2 (02:45→08:09)
[2018-12-09 06:35] LABS: BLOOD UREA NITROGEN,BUN 14 mg/dL (7.0-18.0); CARBON DIOXIDE,CO2 27.2 mmol/L (21.0-32.0); CHLORIDE,CL 106 mmol/L (98-107); GLUCOSE RANDOM 133 mg/dL (74-106); POTASSIUM,K 4.1 mmol/L (3.5-5.1); SODIUM,NA 142 mmol/L (136-148)
[2018-12-09] MEDS: Pantoprazole 40 MG Tab.CR PO SCH (08:02)
--- NOTE | 2018-12-09 08:21 | PCM.SN ---
- Free Text/Narrative Note: patient underwent an incision and drainage of the left knee abscess yesterday. I performed his first dressing changes morning. The wound appears clean and dry signs of granulation tissue in the abscess cavity. Dressing instructions are as follows; 1) Remove all dressings and take a shower. Okay to get soap and water in the wound. Pat the area dry. 2) Place the corner of a 4 x 4 gauze pad into the wound and cover the area with more 4 x 4 gauze pads. 3) Secure in place with an sae wrap. * Change as often as needed to keep the area clean and dry. follow-up Wednesday or Wednesday in my clinic to remove the Omega drain. Okay to discharge from my standpoint.
--- NOTE | 2018-12-09 09:51 | PCM.DCSUM1 ---
<Gayatri Linares - Last Filed: 12/09/18 09:43> Discharge Summary - Hospital Course Free Text/Narrative:: Discharge summary Admission date:December 05, 2018 Discharge date: December 09, 2018 Admission diagnoses: left knee cellulitis Discharge diagnoses: left knee cellulitis with abscess formation with history of MRSA Procedures: left knee incision and drainage Consultations:, Dr. Man, of general surgery Hospital course: Patient is a 28-year-old male with no significant past medical history presenting with left knee, upper and lower extremity redness swelling and decreased range of motion of left knee secondary to swelling for 4 days prior to presentation. States he is having subjective fever and chills and presented to the ED. On arrival left knee was diffusely erythematous, soft tissue swelling with effusion and a draining ulceration and prepatellar aspect with drainage. Patient was initiated on clindamycin and vancomycin. Subsequent days of visits patient had wet-to-dry dressings, multiple times throughout the day; MRI showing 6 mm abscess with no sinus tracts. Concerns for loculations were brought up; Dr. Stewart of surgery was consultated, recommended incision and drainage ultimately with a Pioneer tube placement. No elevated leukocytes, patient became afebrile, discharged postop day 1. Advised to follow-up with Gen. surgery on following Wednesday or Wednesday for Pioneer removal and to continue antibiotics of Flagyl and Bactrim for 10 additional days. Discharge instructions: Notify providor of symptoms of fever, chills, body aches , increasing drainage, decreased range of motion of left knee, worsening pain or any other new symptoms against baseline. Discharge medications: Flagyl 4 days Bactrim DS 10 days Follow-up: Dr. Man general surgery on Wednesday or Wednesdaydecember 12 or 2018 Disposition: home Discharge condition: stable - Discharge Data Discharge Date: 12/09/18 Discharge Disposition: Home, Self-Care 01 Condition: Stable - Referral to Home Health Primary Care Physician: PCP None - Patient Summary/Data Operative Procedure(s) Performed: Incision and drainage left knee abscess Consults: Consultations 12/07/18 09:00 Consult to Physician [CONS] Routine - Patient Instructions Diet: Heart Healthy Diet Driving: May Drive Today Wound/Incision Care: Keep Operative Site/Wound Site Clean and Dry, Change Dressing Daily Notify Provider of: Fever, Increased Pain, Swelling and Redness, Drainage, Nausea and/or Vomiting Other/Special Instructions: Contact providor if new symptoms of fever, chills, increasing pain, or inability to move the knee develop. Contact providor if symptoms of chest pain, shortness of breath or dizziness develop. Advised to follow-up with Dr Man this Wednesday or Wednesday for saskia drain removal - Discharge Plan *PRESCRIPTION DRUG MONITORING PROGRAM REVIEWED*: No *COPY OF PRESCRIPTION DRUG MONITORING REPORT IN PATIENT MJ: No Prescriptions/Med Rec: Sulfamethoxazole/Trimethoprim [Bactrim Ds Tablet] 1 each PO BID 10 Days #20 tablet Home Medications: Home Meds Sulfamethoxazole/Trimethoprim [Bactrim Ds Tablet] 1 each PO BID 10 Days #20 tablet 12/09/18 [Rx] Patient Handouts: Cellulitis, Adult, [id number], Sulfamethoxazole; Trimethoprim, [id number] tablets Referrals: Cristina Man MD [Physician] - 12/21/18 8:00 am - Discharge Summary/Plan Comment DC Time >30 min.: No - Patient Data Vitals - Most Recent: Last Vital Signs Temp 98.3 F 12/09/18 07:47 Pulse 75 12/09/18 07:47 Resp 18 12/09/18 07:47 BP 122/83 12/09/18 07:47 Pulse Ox 98 12/09/18 07:47 Weight - Most Recent: 76.374 kg I&O - Last 24 hours: Intake & Output 12/08/18 12/09/18 12/09/18 22:59 06:59 14:59 Intake Total 740 600 Output Total 400 1050 Balance 340 -450 Lab Results - Last 24 hrs: Laboratory Results - last 24 hr 12/05/18 12/08/18 12/08/18 Range/Units 19:10 10:43 10:43 WBC 5.94 (4.0-11.0) K/uL RBC 4.60 (4.50-5.90) M/uL Hgb 12.7 L (13.0-17.0) g/dL Hct 38.4 (38.0-50.0) % MCV 83.5 (80.0-98.0) fL MCH 27.6 (27.0-32.0) pg MCHC 33.1 (31.0-37.0) g/dL RDW Std Deviation 40.2 (28.0-62.0) fl RDW Coeff of Amelie 13 (11.0-15.0) % Plt Count 330 (150-400) K/uL MPV 9.60 (7.40-12.00) fL Neut % (Auto) 51.1 (48.0-80.0) % Lymph % (Auto) 36.0 (16.0-40.0) % Dickinson % (Auto) 7.6 (0.0-15.0) % Eos % (Auto) 4.5 (0.0-7.0) % Baso % (Auto) 0.8 (0.0-1.5) % Neut # (Auto) 3.0 (1.4-5.7) K/uL Lymph # (Auto) 2.1 (0.6-2.4) K/uL Dickinson # (Auto) 0.5 (0.0-0.8) K/uL Eos # (Auto) 0.3 (0.0-0.7) K/uL Baso # (Auto) 0.1 (0.0-0.1) K/uL Nucleated RBC % 0.0 /100WBC Nucleated RBCs # 0 K/uL Sodium 141 (136-148) mmol/L Potassium 4.0 (3.5-5.1) mmol/L Chloride 105 (98-107) mmol/L Carbon Dioxide 27.7 (21.0-32.0) mmol/L BUN 10 (7.0-18.0) mg/dL Creatinine 0.8 (0.8-1.3) mg/dL Est Cr Clr Drug Dosing 135.02 mL/min Estimated GFR (MDRD) > 60.0 ml/min Glucose 99 (74-106) mg/dL Calcium 8.9 (8.5-10.1) mg/dL Total Bilirubin 0.3 (0.2-1.0) mg/dL AST 11 L (15-37) IU/L ALT 14 (14-63) IU/L Alkaline Phosphatase 68 (46-116) U/L Total Protein 6.7 (6.4-8.2) g/dL Albumin 2.7 L (3.4-5.0) g/dL Globulin 4.0 (2.6-4.0) g/dL Albumin/Globulin Ratio 0.7 L (0.9-1.6) Chlamydia/GC Source URINE C.trachomatis RNA (TMA) Negative (Negative) N.gonorrhoeae RNA (TMA) Negative (Negative) 12/09/18 12/09/18 Range/Units 05:35 05:35 WBC 5.40 (4.0-11.0) K/uL RBC 4.46 L (4.50-5.90) M/uL Hgb 12.3 L (13.0-17.0) g/dL Hct 37.5 L (38.0-50.0) % MCV 84.1 (80.0-98.0) fL MCH 27.6 (27.0-32.0) pg MCHC 32.8 (31.0-37.0) g/dL RDW Std Deviation 40.5 (28.0-62.0) fl RDW Coeff of Amelie 13 (11.0-15.0) % Plt Count 364 (150-400) K/uL MPV 9.50 (7.40-12.00) fL Neut % (Auto) 55.8 (48.0-80.0) % Lymph % (Auto) 34.1 (16.0-40.0) % Dickinson % (Auto) 5.2 (0.0-15.0) % Eos % (Auto) 4.3 (0.0-7.0) % Baso % (Auto) 0.6 (0.0-1.5) % Neut # (Auto) 3.0 (1.4-5.7) K/uL Lymph # (Auto) 1.8 (0.6-2.4) K/uL Dickinson # (Auto) 0.3 (0.0-0.8) K/uL Eos # (Auto) 0.2 (0.0-0.7) K/uL Baso # (Auto) 0.0 (0.0-0.1) K/uL Nucleated RBC % 0.0 /100WBC Nucleated RBCs # 0 K/uL Sodium 142 (136-148) mmol/L Potassium 4.1 (3.5-5.1) mmol/L Chloride 106 (98-107) mmol/L Carbon Dioxide 27.2 (21.0-32.0) mmol/L BUN 14 (7.0-18.0) mg/dL Creatinine 1.0 (0.8-1.3) mg/dL Est Cr Clr Drug Dosing 108.01 mL/min Estimated GFR (MDRD) > 60.0 ml/min Glucose 133 H (74-106) mg/dL Calcium 9.7 (8.5-10.1) mg/dL Total Bilirubin 0.2 (0.2-1.0) mg/dL AST 11 L (15-37) IU/L ALT 13 L (14-63) IU/L Alkaline Phosphatase 65 (46-116) U/L Total Protein 6.7 (6.4-8.2) g/dL Albumin 2.8 L (3.4-5.0) g/dL Globulin 3.9 (2.6-4.0) g/dL Albumin/Globulin Ratio 0.7 L (0.9-1.6) Chlamydia/GC Source C.trachomatis RNA (TMA) (Negative) N.gonorrhoeae RNA (TMA) (Negative) [facility] Results - Last 24 hrs: Microbiology 12/05/18 08:10 Aerobic Blood Culture - Preliminary Blood - Venous - Lab Draw NO GROWTH AFTER 4 DAYS Anaerobic Blood Culture - Preliminary NO GROWTH AFTER 4 DAYS 12/05/18 08:03 Aerobic Blood Culture - Preliminary Blood - Venous NO GROWTH AFTER 4 DAYS Anaerobic Blood Culture - Preliminary NO GROWTH AFTER 4 DAYS 12/08/18 13:20 Gram Stain - Preliminary Knee, Left Med Orders - Current: Current Medications Acetaminophen (Tylenol) 650 mg PO Q6H PRN PRN Reason: Fever Last Admin: 12/08/18 02:45 Dose: 650 mg Diphenhydramine HCl (Benadryl) 50 mg PO Q6H PRN PRN Reason: Itching Docusate Sodium (Colace) 100 mg PO DAILY PRN PRN Reason: Constipation Vancomycin HCl 1.25 gm/ Sodium (Chloride) 250 mls @ 250 mls/hr IV Q8H [facility] Last Admin: 12/09/18 03:25 Dose: 250 mls/hr Clindamycin Phosphate 300 mg/ (Premix) 50 mls @ 150 mls/hr IV Q8H [facility] Last Admin: 12/09/18 02:40 Dose: 100 mls/hr Ondansetron HCl (Zofran Odt) 4 mg PO Q6H PRN PRN Reason: Nausea/Vomiting Oxycodone HCl (Oxycodone) 5 mg PO Q6H PRN PRN Reason: Pain Last Admin: 12/09/18 08:09 Dose: 5 mg Pantoprazole Sodium (Protonix) 40 mg PO DAILY [facility] Last Admin: 12/09/18 08:02 Dose: 40 mg Sodium Chloride (Saline Flush) 10 ml FLUSH ASDIRECTED PRN PRN Reason: Keep Vein Open Last Admin: 12/05/18 09:08 Dose: 10 ml Sodium Chloride (Saline Flush) 2.5 ml FLUSH ASDIRECTED PRN PRN Reason: Keep Vein Open Last Admin: 12/05/18 09:08 Dose: 2.5 ml Temazepam (Restoril) 15 mg PO BEDTIME PRN PRN Reason: Insomnia Discontinued Medications Albuterol (Proventil Neb Soln) 2.5 mg NEB ONETIME PRN PRN Reason: Wheezing Atropine Sulfate (Atropine 0.1 Mg/Ml) 0.5 mg IVPUSH ASDIRECTED PRN PRN Reason: Hypo-perfusion Atropine Sulfate (Atropine 0.1 Mg/Ml) 1 mg IVPUSH ASDIRECTED PRN PRN Reason: Hypo-Perfusion Bupivacaine HCl (Sensorcaine-Mpf 0.5%) Confirm Administered Dose 20 ml .ROUTE .STK-MED ONE Stop: 12/08/18 12:50 Cefazolin Sodium (Ancef) Confirm Administered Dose 1 gm .ROUTE .STK-MED ONE Stop: 12/08/18 12:50 Dextrose/Water (Dextrose 50% In Water) 50 ml IVPUSH ASDIRECTED PRN PRN Reason: Hypoglycemia Diphenhydramine HCl (Benadryl) 25 mg IVPUSH ONETIME ONE Stop: 12/05/18 12:41 Last Admin: 12/05/18 12:48 Dose: 25 mg Epinephrine HCl (Epinephrine 1:10,000) 1 mg IVPUSH ASDIRECTED PRN PRN Reason: ACLS Guidelines Fentanyl (Sublimaze) Confirm Administered Dose 100 mcg .ROUTE .STK-MED ONE Stop: 12/08/18 11:21 Fentanyl (Sublimaze) 50 - 100 mcg IVPUSH Q5M PRN PRN Reason: Pain Gadobenate Dimeglumine (Multihance) 15 ml IVPUSH ONETIME STA Stop: 12/05/18 19:43 Last Admin: 12/05/18 19:43 Dose: 15 ml Ceftriaxone Sodium/Dextrose 1 (gm/ Premix) 50 mls @ 100 mls/hr IV ONETIME ONE Stop: 12/05/18 08:59 Last Admin: 12/05/18 09:07 Dose: 100 mls/hr Clindamycin Phosphate 300 mg/ (Sodium Chloride) 52 mls @ 100 mls/hr IV Q8H [facility] Last Admin: 12/05/18 12:11 Dose: Not Given Clindamycin Phosphate 300 mg/ (Premix) 50 mls @ 100 mls/hr IV Q8H [facility] Last Admin: 12/08/18 02:01 Dose: 100 mls/hr Clindamycin Phosphate 300 mg/ (Premix) 50 mls @ 100 mls/hr IV Q8H [facility] Last Admin: 12/08/18 18:35 Dose: 100 mls/hr Clindamycin Phosphate (Cleocin In D5w) Confirm Administered Dose 50 mls @ as directed IV .STK-MED ONE Stop: 12/08/18 18:31 Last Admin: 12/08/18 18:36 Dose: Not Given Clindamycin Phosphate (Cleocin In D5w) 50 mls @ 100 mls/hr IV Q8H [facility] Last Admin: 12/09/18 03:00 Dose: Not Given Clindamycin Phosphate (Cleocin In D5w) Confirm Administered Dose 50 mls @ as directed IV .STK-MED ONE Stop: 12/09/18 02:23 Last Admin: 12/09/18 03:00 Dose: Not Given Ketorolac Tromethamine (Toradol) Confirm Administered Dose 30 mg .ROUTE .STK- MED ONE Stop: 12/08/18 13:21 Lidocaine (Xylocaine-Mpf 2%) Confirm Administered Dose 5 ml .ROUTE .STK-MED ONE Stop: 12/08/18 11:21 Lidocaine HCl (Xylocaine-Mpf 1%) Confirm Administered Dose 10 ml .ROUTE .STK- MED ONE Stop: 12/08/18 13:14 Lidocaine/Epinephrine (Xylocaine 1% With Epinephrine 1:100,000) Confirm Administered Dose 20 ml .ROUTE .STK-MED ONE Stop: 12/08/18 13:15 Midazolam HCl (Versed 1 Mg/Ml) Confirm Administered Dose 2 mg .ROUTE .STK-MED ONE Stop: 12/08/18 11:21 Midazolam HCl (Versed 1 Mg/Ml) Confirm Administered Dose 2 mg .ROUTE .STK-MED ONE Stop: 12/08/18 12:45 Naloxone HCl (Narcan) 0.1 mg IVPUSH ASDIRECTED PRN PRN Reason: Respiratory Depression Propofol (Diprivan 20 Ml) Confirm Administered Dose 400 mg .ROUTE .STK-MED ONE Stop: 12/08/18 11:21 Vancomycin HCl (Pharmacy To Dose - Vancomycin) 1 dose .XX ASDIRECTED [facility] <Eliecer Antonio - Last Filed: 12/09/18 10:49> Discharge Summary - Hospital Course Free Text/Narrative:: I have seen and examined the patient independently of medical safety director, Dr. Vijay MD. I have reviewed and agree with the plan of care as outlined for this patient by him. I have discussed the case with him. Please see orders. - Referral to Home Health Primary Care Physician: PCP None - Patient Summary/Data Consults: Consultations 12/07/18 09:00 Consult to Physician [CONS] Routine - Patient Data Vitals - Most Recent: Last Vital Signs Temp 36.8 C 12/09/18 07:47 Pulse 75 12/09/18 07:47 Resp 18 12/09/18 07:47 BP 122/83 12/09/18 07:47 Pulse Ox 98 12/09/18 07:47 I&O - Last 24 hours: Intake & Output 12/08/18 12/09/18 12/09/18 22:59 06:59 14:59 Intake Total 740 600 Output Total 400 1050 Balance 340 -450 Lab Results - Last 24 hrs: Laboratory Results - last 24 hr 12/05/18 12/08/18 12/08/18 Range/Units 19:10 10:43 10:43 WBC 5.94 (4.0-11.0) K/uL RBC 4.60 (4.50-5.90) M/uL Hgb 12.7 L (13.0-17.0) g/dL Hct 38.4 (38.0-50.0) % MCV 83.5 (80.0-98.0) fL MCH 27.6 (27.0-32.0) pg MCHC 33.1 (31.0-37.0) g/dL RDW Std Deviation 40.2 (28.0-62.0) fl RDW Coeff of Amelie 13 (11.0-15.0) % Plt Count 330 (150-400) K/uL MPV 9.60 (7.40-12.00) fL Neut % (Auto) 51.1 (48.0-80.0) % Lymph % (Auto) 36.0 (16.0-40.0) % Dickinson % (Auto) 7.6 (0.0-15.0) % Eos % (Auto) 4.5 (0.0-7.0) % Baso % (Auto) 0.8 (0.0-1.5) % Neut # (Auto) 3.0 (1.4-5.7) K/uL Lymph # (Auto) 2.1 (0.6-2.4) K/uL Dickinson # (Auto) 0.5 (0.0-0.8) K/uL Eos # (Auto) 0.3 (0.0-0.7) K/uL Baso # (Auto) 0.1 (0.0-0.1) K/uL Nucleated RBC % 0.0 /100WBC Nucleated RBCs # 0 K/uL Sodium 141 (136-148) mmol/L Potassium 4.0 (3.5-5.1) mmol/L Chloride 105 (98-107) mmol/L Carbon Dioxide 27.7 (21.0-32.0) mmol/L BUN 10 (7.0-18.0) mg/dL Creatinine 0.8 (0.8-1.3) mg/dL Est Cr Clr Drug Dosing 135.02 mL/min Estimated GFR (MDRD) > 60.0 ml/min Glucose 99 (74-106) mg/dL Calcium 8.9 (8.5-10.1) mg/dL Total Bilirubin 0.3 (0.2-1.0) mg/dL AST 11 L (15-37) IU/L ALT 14 (14-63) IU/L Alkaline Phosphatase 68 (46-116) U/L Total Protein 6.7 (6.4-8.2) g/dL Albumin 2.7 L (3.4-5.0) g/dL Globulin 4.0 (2.6-4.0) g/dL Albumin/Globulin Ratio 0.7 L (0.9-1.6) Chlamydia/GC Source URINE C.trachomatis RNA (TMA) Negative (Negative) N.gonorrhoeae RNA (TMA) Negative (Negative) 12/09/18 12/09/18 Range/Units 05:35 05:35 WBC 5.40 (4.0-11.0) K/uL RBC 4.46 L (4.50-5.90) M/uL Hgb 12.3 L (13.0-17.0) g/dL Hct 37.5 L (38.0-50.0) % MCV 84.1 (80.0-98.0) fL MCH 27.6 (27.0-32.0) pg MCHC 32.8 (31.0-37.0) g/dL RDW Std Deviation 40.5 (28.0-62.0) fl RDW Coeff of Amelie 13 (11.0-15.0) % Plt Count 364 (150-400) K/uL MPV 9.50 (7.40-12.00) fL Neut % (Auto) 55.8 (48.0-80.0) % Lymph % (Auto) 34.1 (16.0-40.0) % Dickinson % (Auto) 5.2 (0.0-15.0) % Eos % (Auto) 4.3 (0.0-7.0) % Baso % (Auto) 0.6 (0.0-1.5) % Neut # (Auto) 3.0 (1.4-5.7) K/uL Lymph # (Auto) 1.8 (0.6-2.4) K/uL Dickinson # (Auto) 0.3 (0.0-0.8) K/uL Eos # (Auto) 0.2 (0.0-0.7) K/uL Baso # (Auto) 0.0 (0.0-0.1) K/uL Nucleated RBC % 0.0 /100WBC Nucleated RBCs # 0 K/uL Sodium 142 (136-148) mmol/L Potassium 4.1 (3.5-5.1) mmol/L Chloride 106 (98-107) mmol/L Carbon Dioxide 27.2 (21.0-32.0) mmol/L BUN 14 (7.0-18.0) mg/dL Creatinine 1.0 (0.8-1.3) mg/dL Est Cr Clr Drug Dosing 108.01 mL/min Estimated GFR (MDRD) > 60.0 ml/min Glucose 133 H (74-106) mg/dL Calcium 9.7 (8.5-10.1) mg/dL Total Bilirubin 0.2 (0.2-1.0) mg/dL AST 11 L (15-37) IU/L ALT 13 L (14-63) IU/L Alkaline Phosphatase 65 (46-116) U/L Total Protein 6.7 (6.4-8.2) g/dL Albumin 2.8 L (3.4-5.0) g/dL Globulin 3.9 (2.6-4.0) g/dL Albumin/Globulin Ratio 0.7 L (0.9-1.6) Chlamydia/GC Source C.trachomatis RNA (TMA) (Negative) N.gonorrhoeae RNA (TMA) (Negative) [facility] Results - Last 24 hrs: Microbiology 12/05/18 08:10 Aerobic Blood Culture - Preliminary Blood - Venous - Lab Draw NO GROWTH AFTER 4 DAYS Anaerobic Blood Culture - Preliminary NO GROWTH AFTER 4 DAYS 12/05/18 08:03 Aerobic Blood Culture - Preliminary Blood - Venous NO GROWTH AFTER 4 DAYS Anaerobic Blood Culture - Preliminary NO GROWTH AFTER 4 DAYS 12/08/18 13:20 Gram Stain - Preliminary Knee, Left Med Orders - Current: Current Medications Acetaminophen (Tylenol) 650 mg PO Q6H PRN PRN Reason: Fever Last Admin: 12/08/18 02:45 Dose: 650 mg Diphenhydramine HCl (Benadryl) 50 mg PO Q6H PRN PRN Reason: Itching Docusate Sodium (Colace) 100 mg PO DAILY PRN PRN Reason: Constipation Vancomycin HCl 1.25 gm/ Sodium (Chloride) 250 mls @ 250 mls/hr IV Q8H [facility] Last Admin: 12/09/18 03:25 Dose: 250 mls/hr Clindamycin Phosphate 300 mg/ (Premix) 50 mls @ 150 mls/hr IV Q8H [facility] Last Admin: 12/09/18 02:40 Dose: 100 mls/hr Ondansetron HCl (Zofran Odt) 4 mg PO Q6H PRN PRN Reason: Nausea/Vomiting Oxycodone HCl (Oxycodone) 5 mg PO Q6H PRN PRN Reason: Pain Last Admin: 12/09/18 08:09 Dose: 5 mg Pantoprazole Sodium (Protonix) 40 mg PO DAILY [facility] Last Admin: 12/09/18 08:02 Dose: 40 mg Sodium Chloride (Saline Flush) 10 ml FLUSH ASDIRECTED PRN PRN Reason: Keep Vein Open Last Admin: 12/05/18 09:08 Dose: 10 ml Sodium Chloride (Saline Flush) 2.5 ml FLUSH ASDIRECTED PRN PRN Reason: Keep Vein Open Last Admin: 12/05/18 09:08 Dose: 2.5 ml Temazepam (Restoril) 15 mg PO BEDTIME PRN PRN Reason: Insomnia Discontinued Medications Albuterol (Proventil Neb Soln) 2.5 mg NEB ONETIME PRN PRN Reason: Wheezing Atropine Sulfate (Atropine 0.1 Mg/Ml) 0.5 mg IVPUSH ASDIRECTED PRN PRN Reason: Hypo-perfusion Atropine Sulfate (Atropine 0.1 Mg/Ml) 1 mg IVPUSH ASDIRECTED PRN PRN Reason: Hypo-Perfusion Bupivacaine HCl (Sensorcaine-Mpf 0.5%) Confirm Administered Dose 20 ml .ROUTE .STK-MED ONE Stop: 12/08/18 12:50 Cefazolin Sodium (Ancef) Confirm Administered Dose 1 gm .ROUTE .STK-MED ONE Stop: 12/08/18 12:50 Dextrose/Water (Dextrose 50% In Water) 50 ml IVPUSH ASDIRECTED PRN PRN Reason: Hypoglycemia Diphenhydramine HCl (Benadryl) 25 mg IVPUSH ONETIME ONE Stop: 12/05/18 12:41 Last Admin: 12/05/18 12:48 Dose: 25 mg Epinephrine HCl (Epinephrine 1:10,000) 1 mg IVPUSH ASDIRECTED PRN PRN Reason: ACLS Guidelines Fentanyl (Sublimaze) Confirm Administered Dose 100 mcg .ROUTE .STK-MED ONE Stop: 12/08/18 11:21 Fentanyl (Sublimaze) 50 - 100 mcg IVPUSH Q5M PRN PRN Reason: Pain Gadobenate Dimeglumine (Multihance) 15 ml IVPUSH ONETIME STA Stop: 12/05/18 19:43 Last Admin: 12/05/18 19:43 Dose: 15 ml Ceftriaxone Sodium/Dextrose 1 (gm/ Premix) 50 mls @ 100 mls/hr IV ONETIME ONE Stop: 12/05/18 08:59 Last Admin: 12/05/18 09:07 Dose: 100 mls/hr Clindamycin Phosphate 300 mg/ (Sodium Chloride) 52 mls @ 100 mls/hr IV Q8H [facility] Last Admin: 12/05/18 12:11 Dose: Not Given Clindamycin Phosphate 300 mg/ (Premix) 50 mls @ 100 mls/hr IV Q8H [facility] Last Admin: 12/08/18 02:01 Dose: 100 mls/hr Clindamycin Phosphate 300 mg/ (Premix) 50 mls @ 100 mls/hr IV Q8H [facility] Last Admin: 12/08/18 18:35 Dose: 100 mls/hr Clindamycin Phosphate (Cleocin In D5w) Confirm Administered Dose 50 mls @ as directed IV .STK-MED ONE Stop: 12/08/18 18:31 Last Admin: 12/08/18 18:36 Dose: Not Given Clindamycin Phosphate (Cleocin In D5w) 50 mls @ 100 mls/hr IV Q8H [facility] Last Admin: 12/09/18 03:00 Dose: Not Given Clindamycin Phosphate (Cleocin In D5w) Confirm Administered Dose 50 mls @ as directed IV .STK-MED ONE Stop: 12/09/18 02:23 Last Admin: 12/09/18 03:00 Dose: Not Given Ketorolac Tromethamine (Toradol) Confirm Administered Dose 30 mg .ROUTE .STK- MED ONE Stop: 12/08/18 13:21 Lidocaine (Xylocaine-Mpf 2%) Confirm Administered Dose 5 ml .ROUTE .STK-MED ONE Stop: 12/08/18 11:21 Lidocaine HCl (Xylocaine-Mpf 1%) Confirm Administered Dose 10 ml .ROUTE .STK- MED ONE Stop: 12/08/18 13:14 Lidocaine/Epinephrine (Xylocaine 1% With Epinephrine 1:100,000) Confirm Administered Dose 20 ml .ROUTE .STK-MED ONE Stop: 12/08/18 13:15 Midazolam HCl (Versed 1 Mg/Ml) Confirm Administered Dose 2 mg .ROUTE .STK-MED ONE Stop: 12/08/18 11:21 Midazolam HCl (Versed 1 Mg/Ml) Confirm Administered Dose 2 mg .ROUTE .STK-MED ONE Stop: 12/08/18 12:45 Naloxone HCl (Narcan) 0.1 mg IVPUSH ASDIRECTED PRN PRN Reason: Respiratory Depression Propofol (Diprivan 20 Ml) Confirm Administered Dose 400 mg .ROUTE .STK-MED ONE Stop: 12/08/18 11:21 Vancomycin HCl (Pharmacy To Dose - Vancomycin) 1 dose .XX ASDIRECTED [facility]
--- NOTE | 2018-12-09 12:12 | OR ---
SURGEON: CRISTINA MAN MD DATE OF PROCEDURE: 12/08/2018 PREOPERATIVE DIAGNOSIS: Left knee abscess. POSTOPERATIVE DIAGNOSIS: Left knee abscess. PROCEDURE PERFORMED: Incision and debridement of left knee abscess. PRIMARY SURGEON: Cristina Man MD. ANESTHESIA: MAC. FLUIDS: See Anesthesia record. ESTIMATED BLOOD LOSS: 5 mL. FINDINGS: 5 x 2 cm left anterior knee abscess. COMPLICATIONS: None. INDICATIONS: The patient is a 28-year-old male who presented to the Medicine Service with cellulitis of the left knee. He was placed on antibiotics and developed a fluctuant area over the medial aspect of the anterior left knee. The decision was made to proceed with an incision and drainage under monitored anesthesia care. I explained the procedure; expected perioperative course; and risks including bleeding, infection, or damage to surrounding structures including the possibility of joint capsular involvement. The patient verbalized understanding and wishes to proceed. PROCEDURE IN DETAIL: The patient was brought into the OR and placed on the OR table in supine position. A time-out was completed verifying the patient's name, age, date of , allergies, and procedure to be performed. Monitored anesthesia care was induced. Once the patient was adequately sedated, we prepped and draped the knee in usual standard fashion. I anesthetized the area overlying the left knee abscess with 1% lidocaine with epinephrine. A hemostat was then placed through an open draining wound over the knee. This tracked superiorly to the area of fluctuance. Using a 15 blade, I made a cruciate incision over the tip of the hemostat inside the abscess cavity. The wound immediately expressed bloody/purulent material. This was suctioned out. The wound cavity was then cultured. The edges of the cruciate incision were excised. Using blunt dissection, I broke up any loculations in the area. I then measured the total extent of the wound. It measured 5 cm long x 2 cm wide and was 0.5 cm deep. The wound was irrigated copiously with normal saline. Hemostasis was achieved using electrocautery. A quarter-inch Omega drain was run from the draining wound up through the new opening and secured with 3-0 Ethilon suture. The new opening was then packed with quarter-inch Nu Gauze. Dry fluffs and an Justen bandage were then placed. The patient tolerated the procedure well and was transferred to the PACU in stable condition. All counts were complete and correct at the end of the case. MARIA ELENA / SHELBY /[id number]
== END 2018-12-09 10:50 | disposition home or self-care (01) | DRG 572 ==
LOC: MW.ED 07:21 → MW.MS 10:38 → EEVIPCON 10:38 → OBSVTOIN 12-07 13:26
PROVIDERS: ADMIT Internal Medicine; ATTEND Internal Medicine
PROC: 0JBP0ZZ Excision of Left Lower Leg Subcutaneous Tissue and Fascia, Open Approach (ICD-10-PCS; principal; 2018-12-08)
DX: L02.416 Cutaneous abscess of left lower limb (principal); L03.116 Cellulitis of left lower limb; E87.6 Hypokalemia; D64.9 Anemia, unspecified; Z86.14 Personal history of Methicillin resistant Staphylococcus aureus infection
CPT/HCPCS: 00400; 36415; 73562-26-LT; 73562-LT; 73723-26-LT; 73723-LT; 80053; 80202; 83605; 85025; 85652; 86140; 87040; 87070; 87075; 87077; 87186; 87205; 87491; 87591; 93971-26-LT; 93971-LT; 96365; 96366; 96367; 96375; 96376; 99284; 99285-25; A9270-GY; A9577; G0378; J0690; J0696; J1200; J1885; J2001; J2250; J2704; J3010; J3370; J3490; J7050